=== PATIENT | male | born 1950 | race Caucasian/White ===

== ENCOUNTER 2017-10-19 14:32 | Inpatient (IN) | payer SELFPAY ==
--- NOTE | 2017-10-19 16:45 | EDM.PDOC ---
ED HPI GENERAL MEDICAL PROBLEM - General Chief Complaint: Cardiovascular Problem Stated Complaint: SWELLING Time Seen by Provider: 10/19/17 16:45 Source of Information: Reports: Patient History Limitations: Reports: No Limitations - History of Present Illness INITIAL COMMENTS - FREE TEXT/NARRATIVE: 66-year-old male presents to the ED with a reported 15 pound weight gain over the last 2-3 weeks. He feels short of breath on minimal exertion. He comments that he is experiencing orthopnea and paroxysmal nocturnal dyspnea. He's been sleeping in the easy chair. Appreciated that his legs are swollen some of his penis and scrotum are swollen and he has a pressure in his lower right quadrant of his abdomen. Eyes cough or sputum production. No fever or chills. Reports she 's been hypertensive for many years but off of antihypertensive medications since Dr. Nile mejia down in [facility]. They wouldn't fill his medications anymore. He's not sure what medications he is to take but he knows that one of them was a beta yovana to help his heart rate. Denies any chest pain. No history of myocardial infarction. No true history of congestive failure. Onset: Gradual Onset Date: 09/29/17 (15 pound weight gain with orthopnea and PND for the last 3 weeks) Duration: Week(s): Location: Reports: Generalized (Generalized fatigue weakness and shortness of breath on minimal exertion.) Quality: Reports: Other (Shortness of breath with orthopnea and PND for about 3 weeks. Reported 15 pound weight gain over the last 3 weeks) Severity: Moderate Improves with: Reports: None Worsens with: Reports: Other (Lying down), Movement Context: Denies: Activity, Exercise, Lifting, Sick Contact, Trauma, Other Associated Symptoms: Reports: Loss of Appetite, Malaise (Feels early satiety.), Shortness of Breath. Denies: No Other Symptoms, Confusion, Chest Pain, Cough, cough w sputum, Diaphoresis, Fever/Chills, Headaches, Nausea/Vomiting, Rash, Seizure (On exertion), Syncope, Weakness Treatments [employer]: Reports: Other (see below) (Just got back on medicines yesterday metoprolol 25 mg bid. Also apparently started likely on lisinopril/ hydrochlorothiazide dosage unknown yesterday.) - Related Data Allergies Allergy/AdvReac Type Severity Reaction Status Date / Time mold Allergy Rash Verified 10/19/17 16:58 Home Meds: Home Meds Amlidipno 2.5 mg PO DAILY 10/19/17 [History] Aspirin 81 mg PO DAILY 10/19/17 [History] Fish Oil/Peridot-3 Fatty Acids [Fish Oil 1,000 MG] 1,000 mg PO DAILY 10/19/17 [ History] Healthy Blood Pressure Formula 1 tab PO DAILY 10/19/17 [History] Metoprolol Tartrate 25 mg PO BID 10/19/17 [History] Organic Juice Cleanse 1 scoop PO DAILY 10/19/17 [History] Total Cardiocover 1 tab PO DAILY 10/19/17 [History] Ubiquinol 200 mg PO DAILY 10/19/17 [History] Past Medical History Cardiovascular History: Reports: High Cholesterol, Hypertension Musculoskeletal History: Reports: Osteoarthritis (Knees and hips.) Social & Family History - Living Situation & Occupation Living situation: Reports: Single Occupation: Employed ED ROS GENERAL - Review of Systems Review Of Systems: See Below Constitutional: Reports: Malaise, Weakness, Fatigue, Weight Gain (15 pound weight gain over the last 3 weeks.). Denies: Fever, Weight Loss HEENT: Reports: Glasses (Just for reading.) Respiratory: Reports: Shortness of Breath, Other (On minimal exertion and PND last 3 weeks). Denies: Cough, Sputum, Hemoptysis Cardiovascular: Reports: Blood Pressure Problem (Chronic hyperplastic problem for about 25 years. Off of medication for the last year started again yesterday. ), Dyspnea on Exertion, Edema. Denies: Claudication (Has appreciated swelling of his legs the last several weeks.), Lightheadedness, Orthopnea Endocrine: Reports: Fatigue GI/Abdominal: Reports: Abdominal Pain (Has some right lower abdominal discomfort at times. Feels swelling in his lower abdomen.) : Reports: Other (Swelling of his penis and scrotum appreciated intermittently.) Musculoskeletal: Reports: Back Pain (Intermittently.), Joint Pain (Knees hips and neck recently.) Skin: Reports: No Symptoms Neurological: Denies: Confusion, Dizziness, Headache, Numbness, Paresthesia, Pre -Existing Deficit, Seizure, Syncope, Tingling, Tremors, Trouble Speaking, Difficulty Walking, Weakness Psychiatric: Reports: No Symptoms Hematologic/Lymphatic: Reports: No Symptoms Immunologic: Reports: No Symptoms ED EXAM, GENERAL - Physical Exam Exam: See Below Exam Limited By: No Limitations General Appearance: Alert, WD/WN, No Apparent Distress Eye Exam: Bilateral Eye: Normal Inspection Throat/Mouth: Normal Inspection, Normal Lips, Normal Teeth, Normal Gums, Normal Oropharynx Head: Atraumatic, Normocephalic Neck: Normal Inspection, Supple, Non-Tender, Full Range of Motion. No: Lymphadenopathy (L), Lymphadenopathy (R) Respiratory/Chest: No Respiratory Distress, Rales (Right lung base. Left is clear.). No: Lungs Clear, Normal Breath Sounds Cardiovascular: JVD (Jugular venous pulsations up to the angle of his mandible bilaterally.), Irregularly Irregular (Heart rate was 140s per minute likely underlying atrial fibrillation he was not on the monitor at the time of my assessment.). No: Systolic Murmur, Gallop/S3 Peripheral Pulses: 1+: Posterior Tibial (L), Posterior Tibial (R), Dorsalis Pedis (L), Dorsalis Pedis (R) GI/Abdominal: Normal Bowel Sounds, Soft, Non-Tender, No Organomegaly, No Abnormal Bruit, No Mass, Pelvis Stable (Male) Exam: No Hernia Back Exam: Normal Inspection, Full Range of Motion. No: CVA Tenderness (L), CVA Tenderness (R) Extremities: Pedal Edema (2+ pitting edema both lower extremities. This is up to the tibial tuberosities bilaterally) Neurological: Alert, Oriented, CN II-XII Intact, Normal Cognition Psychiatric: Normal Affect, Normal Mood Skin Exam: Warm, Dry, Intact, Normal Color, No Rash EKG INTERPRETATION EKG Date: 10/19/17 Time: 17:00 Rhythm: Other (The computer reading is sinus tachycardia I disagree i.e. I think the underlying rhythm is atrial fib or flutter. However the rhythm is very regular. I will slow him down with medication and repeat ECG.) Rate (Beats/Min): 133 [place]: Normal P-Wave: Variable QRS: Other (Left bundle branch block pattern. Significant left ventricular hypertrophy with strain pattern.) ST-T: Other (There is a diffuse early repolarization pattern scaling the ST segment upwards. There is no true evidence of acute myocardial infarction.) QT: Prolonged (Minimally prolonged.) EKG Interpretation Comments: Abnormal ECG. Course - Vital Signs Last Recorded V/S: Last Vital Signs Temp 36.6 C 10/19/17 14:57 Pulse 132 H 10/19/17 14:57 Resp 16 10/19/17 14:57 BP 165/100 H 10/19/17 14:57 Pulse Ox 100 10/19/17 14:57 - Orders/Labs/Meds Orders: Active Orders 24 hr Category Date Time Status EKG Documentation Completion [RC] STAT Care 10/19/17 16:53 Active EKG Documentation Completion [RC] STAT Care 10/19/17 17:43 Active Peripheral IV Care [RC] . DIRECTED Care 10/19/17 16:58 Active Chest 1V Frontal [CR] Stat Exams 10/19/17 16:53 Taken Diltiazem 125 mg Med 10/19/17 18:00 Active Sodium Chloride 0.9% [Normal Saline] 100 ml IV ASDIRECTED Sodium Chloride 0.9% [Saline Flush] Med 10/19/17 16:58 Active 10 ml FLUSH ASDIRECTED PRN Peripheral IV Insertion Adult [OM.PC] Stat Oth 10/19/17 16:58 Ordered Medication Orders Diltiazem HCl 125 mg/ Sodium (Chloride) 125 mls @ 10 mls/hr IV ASDIRECTED PERRI Last Admin: 10/19/17 18:57 Dose: 10 mg/hr, 10 mls/hr Sodium Chloride (Saline Flush) 10 ml FLUSH ASDIRECTED PRN PRN Reason: Keep Vein Open Last Admin: 10/19/17 17:33 Dose: 10 ml Labs: Laboratory Tests 10/19/17 10/19/17 10/19/17 Range/Units 18:35 18:35 18:35 WBC 9.30 H (4.23-9.07) K/mm3 RBC 5.97 (4.63-6.08) M/mm3 Hgb 15.5 (13.7-17.5) gm/L Hct 48.0 (40.1-51.0) % MCV 80.4 (79.0-92.2) fl MCH 26.0 (25.7-32.2) pg MCHC 32.3 (32.2-35.5) g/dl RDW Std Deviation 53.7 H (35.1-43.9) fL Plt Count 264 (163-337) K/mm3 MPV 9.5 (9.4-12.3) fl Neutrophils % (Manual) 79 H (40-60) % Band Neutrophils % 0 (0-10) % Lymphocytes % (Manual) 17 L (20-40) % Atypical Lymphs % 0 % Monocytes % (Manual) 2 (2-10) % Eosinophils % (Manual) 1 (0.8-7.0) % Basophils % (Manual) 1 (0.2-1.2) Platelet Estimate Adequate Plt Morphology Comment Normal RBC Morph Comment Normal PT 13.1 H (9.5-12.1) SECONDS INR 1.21 Sodium 139 (136-145) mEq/L Potassium 3.6 (3.5-5.1) mEq/L Chloride 104 (98-107) mEq/L Carbon Dioxide 20 L (21-32) mEq/L Anion Gap 18.6 H (5-15) BUN 74 H (7-18) mg/dL Creatinine 2.5 H (0.7-1.3) mg/dL Est Cr Clr Drug Dosing 29.61 mL/min Estimated GFR (MDRD) 26 (>60) mL/min BUN/Creatinine Ratio 29.6 H (14-18) Glucose 100 (80-115) mg/dL Calcium 8.8 (8.5-10.1) mg/dL Magnesium 2.6 H (1.8-2.4) mg/dl Total Bilirubin 1.7 H (0.2-1.0) mg/dL AST 53 H (15-37) U/L ALT 75 H (16-63) U/L Alkaline Phosphatase 98 (46-116) U/L CK-MB (CK-2) 7.2 H (0-3.6) ng/ml Troponin I 0.068 H* (0.00-0.056) ng/mL C-Reactive Protein 2.9 H* (<1.0) mg/dL NT-Pro-B Natriuret Pep (0-125) pg/mL Total Protein 6.8 (6.4-8.2) g/dl Albumin 3.5 (3.4-5.0) g/dl Globulin 3.3 gm/dL Albumin/Globulin Ratio 1.1 (1-2) TSH 3rd Generation (0.358-3.74) uIU/mL 10/19/17 10/19/17 Range/Units 18:35 18:35 WBC (4.23-9.07) K/mm3 RBC (4.63-6.08) M/mm3 Hgb (13.7-17.5) gm/L Hct (40.1-51.0) % MCV (79.0-92.2) fl MCH (25.7-32.2) pg MCHC (32.2-35.5) g/dl RDW Std Deviation (35.1-43.9) fL Plt Count (163-337) K/mm3 MPV (9.4-12.3) fl Neutrophils % (Manual) (40-60) % Band Neutrophils % (0-10) % Lymphocytes % (Manual) (20-40) % Atypical Lymphs % % Monocytes % (Manual) (2-10) % Eosinophils % (Manual) (0.8-7.0) % Basophils % (Manual) (0.2-1.2) Platelet Estimate Plt Morphology Comment RBC Morph Comment PT (9.5-12.1) SECONDS INR Sodium (136-145) mEq/L Potassium (3.5-5.1) mEq/L Chloride (98-107) mEq/L Carbon Dioxide (21-32) mEq/L Anion Gap (5-15) BUN (7-18) mg/dL Creatinine (0.7-1.3) mg/dL Est Cr Clr Drug Dosing mL/min Estimated GFR (MDRD) (>60) mL/min BUN/Creatinine Ratio (14-18) Glucose (80-115) mg/dL Calcium (8.5-10.1) mg/dL Magnesium (1.8-2.4) mg/dl Total Bilirubin (0.2-1.0) mg/dL AST (15-37) U/L ALT (16-63) U/L Alkaline Phosphatase (46-116) U/L CK-MB (CK-2) (0-3.6) ng/ml Troponin I (0.00-0.056) ng/mL C-Reactive Protein (<1.0) mg/dL NT-Pro-B Natriuret Pep 9267 H (0-125) pg/mL Total Protein (6.4-8.2) g/dl Albumin (3.4-5.0) g/dl Globulin gm/dL Albumin/Globulin Ratio (1-2) TSH 3rd Generation 1.573 (0.358-3.74) uIU/mL Meds: Medications Generic Name Dose Route Start Last Admin Trade Name Freq PRN Reason Stop Dose Admin Diltiazem HCl 125 mg/ Sodium 125 mls @ 10 mls/hr 10/19/17 18:00 10/19/17 18: 57 Chloride IV 10 mg/hr ASDIRECTED PERRI 10 mls/hr Administration 10 MG/HR Sodium Chloride 10 ml 10/19/17 16:58 10/19/17 17:33 Saline Flush FLUSH 10 ml ASDIRECTED PRN Administration Keep Vein Open Discontinued Medications Generic Name Dose Route Start Last Admin Trade Name Freq PRN Reason Stop Dose Admin Diltiazem HCl 10 mg 10/19/17 17:08 10/19/17 17:28 Diltiazem IVPUSH 10/19/17 17:09 10 mg ONETIME ONE Administration Diltiazem HCl 10 mg 10/19/17 18:25 10/19/17 18:31 Diltiazem IVPUSH 10/19/17 18:26 10 mg ONETIME ONE Administration Furosemide 40 mg 10/19/17 16:58 10/19/17 17:27 Lasix IVPUSH 10/19/17 16:59 40 mg NOW ONE Administration Hydralazine HCl 10 mg 10/19/17 18:34 10/19/17 18:55 Apresoline IVPUSH 10/19/17 18:35 10 mg ONETIME ONE Administration - Radiology Interpretation Free Text/Narrative:: 66-year-old male presents to the ED with a reported 15 pound weight gain over the last 3 weeks. Associated orthopnea and PND. He is not aware of any palpitations but at rest his heart rate was 133 with a regular wide-complex tachycardia on ECG. Since sinus in origin although I'm not convinced that. I suspect it may be atrial flutter with a 2-1 conduction block. He has increased dependent edema in his lower extremities. Reports he is chronically hypertensive but after his doctor retired a year ago they would refill his blood pressure medications and never really followed up with anybody. Lactic right [facility] 2 days ago and was prescribed metoprolol 25 mg twice a day and apparently lisinopril/hydrochlorothiazide dosage unknown daily. He came in because he is having increasing orthopnea and PND. He is unable to lie down to sleep. Dyspnea on minimal exertion. He has no known history of congestive heart failure. Plan 1 view chest x-ray to be done. Saline lock will be started. He'll be given Lasix 40 mg IV and going to give him a dose of Cardizem 10 mg IV bolus in an effort to slow his heart rate down and also to improve his blood pressure which is 165/100. Labs including BNP serum magnesium and a TSH will be ordered. - Re-Assessments/Exams Free Text/Narrative Re-Assessment/Exam: 10/19/17 18:02 heart rate was slowed down with Cardizem 10 mg IV bolus. Did not produce my conviction that there is atrial flutter with a 2-1 conduction block. It is down to [address] now [address] him on a Cardizem drip at 10 mg per hour. Is to x-ray revealed moderate cardiomegaly but clear lung jacinto. No pleural effusions or pneumothorax. 10/19/17 18:26 Heart rate is back up to 133/min. Will therefore give a repeat dose of Cardizem as I'm 10 mg IV bolus. 10/19/17 19:25 Labs are back. Reveals a white count of 9.30 with 79% neutrophils with no bands reported. Hemoglobin is 15.5 with hematocrit of 48.0. Platelet count is normal at 264,000. PT is 13.1 with an INR of 1.21. Sodium is 139 with potassium of 3.6. Chloride is 104 with a bicarbonate 20. Anion gap is elevated 18.6. BUN is 74. Creatinine is elevated at 2.5 indicating significant renal insufficiency. His GFR is estimated at 26 which is stage IV renal insufficiency. Glucose is 100. Calcium is 8.8. Magnesium is normal at 2.6 actually a bit high. Total bilirubin is elevated at 1.7. AST is 53 with an ALT of 75. Alk phosphatase is normal at 98. CK-MB fraction is elevated at 7.2 troponin I is elevated at 0.068. C-reactive protein is 2.9. BNP is 9267. TSH is 1.573 normal. 10/19/17 19:[address] Dumont about the patient's findings. He has accepted care and the patient will be admitted to the intensive care unit on a Cardizem drip for rate control. He has uncontrolled hypertension( malignant hypertension) which is the major issue causing his congestive failure with development of atrial flutter with a 2-1 conduction delay at this time. This is contributing to renal insufficiency and congestive heart failure. Departure - Departure Time of Disposition: 19:37 Disposition: Admitted As Inpatient 65 Condition: Serious Clinical Impression: Atrial flutter with rapid ventricular response, Chronic renal insufficiency, stage IV (severe), Malignant hypertension Congestive heart failure Qualifiers: Heart failure type: unspecified Heart failure chronicity: acute Qualified Code( s): I50.9 - Heart failure, unspecified Referrals: PCP,None [Primary Care Provider] - Forms: ED Department Discharge - My Orders Last 24 Hours: My Active Orders 10/19/17 16:53 EKG Documentation Completion [RC] STAT Chest 1V Frontal [CR] Stat 10/19/17 16:58 Peripheral IV Care [RC] . DIRECTED Sodium Chloride 0.9% [Saline Flush] 10 ml FLUSH ASDIRECTED PRN Peripheral IV Insertion Adult [OM.PC] Stat 10/19/17 17:43 EKG Documentation Completion [RC] STAT 10/19/17 18:00 Diltiazem 125 mg Sodium Chloride 0.9% [Normal Saline] 100 ml IV ASDIRECTED - Assessment/Plan Last 24 Hours: My Active Orders 10/19/17 16:53 EKG Documentation Completion [RC] STAT Chest 1V Frontal [CR] Stat 10/19/17 16:58 Peripheral IV Care [RC] . DIRECTED Sodium Chloride 0.9% [Saline Flush] 10 ml FLUSH ASDIRECTED PRN Peripheral IV Insertion Adult [OM.PC] Stat 10/19/17 17:43 EKG Documentation Completion [RC] STAT 10/19/17 18:00 Diltiazem 125 mg Sodium Chloride 0.9% [Normal Saline] 100 ml IV ASDIRECTED
[2017-10-19] MEDS ORDERED: Furosemide 40 MG/4 ML VIAL IVPUSH ONE (16:58)
[2017-10-19] MEDS ORDERED: Sodium Chloride 0.9% 10 ML Syringe FLUSH PRN (16:58)
[2017-10-19] MEDS ORDERED: Diltiazem 25 MG/5 ML SDV IVPUSH ONE ×2 (17:08→18:25)
[2017-10-19] MEDS ORDERED: Diltiazem 125 MG in Sodium Chloride 0.9% 100 ML IV SCH ×2 (18:00→23:15)
[2017-10-19] MEDS ORDERED: hydrALAZINE 20 MG/ML SDV IVPUSH ONE (18:34)
--- NOTE | 2017-10-19 20:51 | PCM.HP ---
H&P History of Present Illness - General Date of Service: 10/19/17 Admit Problem/Dx: Admission Diagnosis/Problem Admission Diagnosis/Problem Atrial fibrillation Source of Information: Patient, Family, Provider, RN Notes Reviewed History Limitations: Reports: No Limitations - History of Present Illness Initial Comments - Free Text/Narative: This is a 66 yo white male with past medical hx/o HTN who comes in with complaints of increased weight gain of about 15lbs or more over the past 3 weeks associated with dyspnea on exertion, fatigue, generalized weakness and swelling on bilateral lower extremity as well as on scrotum. He has been sleeping in am EZ chair due to PND and Orthopnea. He reports no hx/o heart disease or heart failure in the past. However he carries a hx/o long standing hypertension but has been non-compliant per family. In the past, he hops from one doctor to another but currently he just started seeing a provider. He is just got back on combo ACEI/HCTZ and Metoprolol 35 mg po BID for medical management of his HTN. His initial work up in ED shows, a CBC remarkable for WBC of 9.30, RDW of 53.7, Neutrophils of 79%, and Lymphocytes of 17%. His Coagulation study is remarkable for PT of 13.1. His chemistry is significant for CO2 of 20, AG of 18.6, BUN of 74, Cr of 2.5, Mg of 2.6, Total Bilirubin of 1.7, AST of 53, ALT of 75, CKMB of 7.2, Troponin of 2.9, and ProBNP of 9267. His UA is negative for UTI. His CXR shows moderately enlarged heart w/o obvious congestion or effusions. Upon presentation to ED he was found with at HR of 133 with a WCT on EKG. But a closer look of it, it revealed he had atrial flutter with 2:1 conduction block. Patient received 40 mg IV lasix and Cardizem 10 mg IV in ED before he was put on cardizem drip and moved to unit. Patient is being admitted for medical management of atrial flutter with RVR, heart failure with unknown ef, acute vs ckd and malignant hypertension. He is full code. - Related Data Allergies/Adverse Reactions: Allergies Allergy/AdvReac Type Severity Reaction Status Date / Time mold Allergy Rash Verified 10/19/17 16:58 Home Medications: Home Meds Metoprolol Tartrate 25 mg PO BID 10/19/17 [History] Past Medical History Cardiovascular History: Reports: High Cholesterol, Hypertension Respiratory History: Reports: Asthma Musculoskeletal History: Reports: Osteoarthritis Neurological History: Reports: Migraines Psychiatric History: Reports: Anxiety Oncologic (Cancer) History: Reports: Malignant Melanoma Dermatologic History: Reports: Melanoma - Infectious Disease History Infectious Disease History: Reports: Chicken Pox, Mumps - Past Surgical History HEENT Surgical History: Reports: Naso-Sinus Surgery Other HEENT Surgeries/Procedures: 1976 Social & Family History - Family History Family Medical History: Noncontributory Neurological: Reports: None Psychiatric: Reports: None - Tobacco Use Smoking Status *Q: Never Smoker Second Hand Smoke Exposure: No - Caffeine Use Caffeine Use: Reports: None Other Caffeine Use: occasional - Recreational Drug Use Recreational Drug Use: No - Living Situation & Occupation Living situation: Reports: Single Occupation: Employed H&P Review of Systems - Review of Systems: Review Of Systems: ROS reveals no pertinent complaints other than HPI. Exam - Exam Exam: See Below - Vital Signs Vital Signs: Last Vital Signs Temp 36.6 C 10/19/17 14:57 Pulse 112 H 10/19/17 19:47 Resp 16 10/19/17 14:57 BP 165/100 H 10/19/17 14:57 Pulse Ox 100 10/19/17 14:57 Weight: 53.07 kg - Exam General: Alert, Oriented, Cooperative, Sedated. No: Mild Distress HEENT: Conjunctiva Clear, EOMI, Hearing Intact, Mucosa Moist & [place], Nares Patent, Normal Nasal Septum, Posterior Pharynx Clear, Pupils Equal, Pupils Reactive Neck: Supple, Trachea Midline, +2 Carotid Pulse wo Bruit Lungs: Clear to Auscultation, Normal Respiratory Effort Cardiovascular: Irregular Rhythm, Other (Irregular Rate) GI/Abdominal Exam: Normal Bowel Sounds, Soft, Non-Tender, No Organomegaly, No Distention, No Abnormal Bruit, No Mass (Male) Exam: Deferred Rectal (Males) Exam: Deferred Back Exam: Normal Inspection, Decreased Range of Motion Extremities: Normal Inspection, Normal Range of Motion, Non-Tender, Pedal Edema Peripheral Pulses: 2+: Posterior Tibial (L), Posterior Tibial (R), Dorsalis Pedis (L), Dorsalis Pedis (R) Skin: Warm, Dry, Intact Neuro Extensive - Mental Status: Oriented x3, Normal Cognition, Memory Intact Neuro Extensive - Motor, Sensory, Reflexes: CN II-XII Intact, Normal Gait Psychiatric: Alert, Normal Affect, Normal Mood - Patient Data Lab Results Last 24 hrs: Laboratory Results - last 24 hr 10/19/17 10/19/17 10/19/17 Range/Units 18:35 18:35 18:35 WBC 9.30 H (4.23-9.07) K/mm3 RBC 5.97 (4.63-6.08) M/mm3 Hgb 15.5 (13.7-17.5) gm/L Hct 48.0 (40.1-51.0) % MCV 80.4 (79.0-92.2) fl MCH 26.0 (25.7-32.2) pg MCHC 32.3 (32.2-35.5) g/dl RDW Std Deviation 53.7 H (35.1-43.9) fL Plt Count 264 (163-337) K/mm3 MPV 9.5 (9.4-12.3) fl Neutrophils % (Manual) 79 H (40-60) % Band Neutrophils % 0 (0-10) % Lymphocytes % (Manual) 17 L (20-40) % Atypical Lymphs % 0 % Monocytes % (Manual) 2 (2-10) % Eosinophils % (Manual) 1 (0.8-7.0) % Basophils % (Manual) 1 (0.2-1.2) Platelet Estimate Adequate Plt Morphology Comment Normal RBC Morph Comment Normal PT 13.1 H (9.5-12.1) SECONDS INR 1.21 Sodium 139 (136-145) mEq/L Potassium 3.6 (3.5-5.1) mEq/L Chloride 104 (98-107) mEq/L Carbon Dioxide 20 L (21-32) mEq/L Anion Gap 18.6 H (5-15) BUN 74 H (7-18) mg/dL Creatinine 2.5 H (0.7-1.3) mg/dL Est Cr Clr Drug Dosing 29.61 mL/min Estimated GFR (MDRD) 26 (>60) mL/min BUN/Creatinine Ratio 29.6 H (14-18) Glucose 100 (80-115) mg/dL Calcium 8.8 (8.5-10.1) mg/dL Magnesium 2.6 H (1.8-2.4) mg/dl Total Bilirubin 1.7 H (0.2-1.0) mg/dL AST 53 H (15-37) U/L ALT 75 H (16-63) U/L Alkaline Phosphatase 98 (46-116) U/L CK-MB (CK-2) 7.2 H (0-3.6) ng/ml Troponin I 0.068 H* (0.00-0.056) ng/mL C-Reactive Protein 2.9 H* (<1.0) mg/dL NT-Pro-B Natriuret Pep (0-125) pg/mL Total Protein 6.8 (6.4-8.2) g/dl Albumin 3.5 (3.4-5.0) g/dl Globulin 3.3 gm/dL Albumin/Globulin Ratio 1.1 (1-2) TSH 3rd Generation (0.358-3.74) uIU/mL 10/19/17 10/19/17 Range/Units 18:35 18:35 WBC (4.23-9.07) K/mm3 RBC (4.63-6.08) M/mm3 Hgb (13.7-17.5) gm/L Hct (40.1-51.0) % MCV (79.0-92.2) fl MCH (25.7-32.2) pg MCHC (32.2-35.5) g/dl RDW Std Deviation (35.1-43.9) fL Plt Count (163-337) K/mm3 MPV (9.4-12.3) fl Neutrophils % (Manual) (40-60) % Band Neutrophils % (0-10) % Lymphocytes % (Manual) (20-40) % Atypical Lymphs % % Monocytes % (Manual) (2-10) % Eosinophils % (Manual) (0.8-7.0) % Basophils % (Manual) (0.2-1.2) Platelet Estimate Plt Morphology Comment RBC Morph Comment PT (9.5-12.1) SECONDS INR Sodium (136-145) mEq/L Potassium (3.5-5.1) mEq/L Chloride (98-107) mEq/L Carbon Dioxide (21-32) mEq/L Anion Gap (5-15) BUN (7-18) mg/dL Creatinine (0.7-1.3) mg/dL Est Cr Clr Drug Dosing mL/min Estimated GFR (MDRD) (>60) mL/min BUN/Creatinine Ratio (14-18) Glucose (80-115) mg/dL Calcium (8.5-10.1) mg/dL Magnesium (1.8-2.4) mg/dl Total Bilirubin (0.2-1.0) mg/dL AST (15-37) U/L ALT (16-63) U/L Alkaline Phosphatase (46-116) U/L CK-MB (CK-2) (0-3.6) ng/ml Troponin I (0.00-0.056) ng/mL C-Reactive Protein (<1.0) mg/dL NT-Pro-B Natriuret Pep 9267 H (0-125) pg/mL Total Protein (6.4-8.2) g/dl Albumin (3.4-5.0) g/dl Globulin gm/dL Albumin/Globulin Ratio (1-2) TSH 3rd Generation 1.573 (0.358-3.74) uIU/mL Result Diagrams: 10/20/17 05:50 10/20/17 05:50 EKG INTERPRETATION EKG Date: 10/19/17 Time: 05:01 Rhythm: Other (Sinus Tachycardia) Rate (Beats/Min): 133 QRS: LBBB EKG Interpretation Comments: LV[facility] Problem List Initiated/Reviewed/Updated: Yes Orders Last 24hrs: Active Orders 24 hr Category Date Time Status Patient Status [ADT] Routine ADT 10/19/17 19:32 Active EKG Documentation Completion [RC] STAT Care 10/19/17 16:53 Active EKG Documentation Completion [RC] STAT Care 10/19/17 17:43 Active Peripheral IV Care [RC] . DIRECTED Care 10/19/17 16:58 Active Chest 1V Frontal [CR] Stat Exams 10/19/17 16:53 Taken Diltiazem 125 mg Med 10/19/17 18:00 Active Sodium Chloride 0.9% [Normal Saline] 100 ml IV ASDIRECTED Sodium Chloride 0.9% [Saline Flush] Med 10/19/17 16:58 Active 10 ml FLUSH ASDIRECTED PRN Peripheral IV Insertion Adult [OM.PC] Stat Oth 10/19/17 16:58 Ordered Medication Orders Diltiazem HCl 125 mg/ Sodium (Chloride) 125 mls @ 10 mls/hr IV ASDIRECTED PERRI Last Admin: 10/19/17 18:57 Dose: 10 mg/hr, 10 mls/hr Sodium Chloride (Saline Flush) 10 ml FLUSH ASDIRECTED PRN PRN Reason: Keep Vein Open Last Admin: 10/19/17 17:33 Dose: 10 ml Assessment/Plan Comment:: Assessment/Plan: Acute: Atrial Flutter with RVR - 2:1 conduction - New Onset - Suspect 2/2 acute congestive heart failure - Risk Factors: HF, HTN, CKD and Medical Non-Compliance - He drinks coffee but not much; No monster or 5 hour drinks - TSH and FT4 level - Currently on Cardizem drip - CHA2D2 -VASc Score is at least 3: Stroke risk was 3.2% per year in >90,000 patients (the [place] Atrial Fibrillation Cohort Study) and 4.6% risk of stroke/ TIA/systemic embolism - Offered Warfarin vs NOACs; patient selected eliquis Heart Failure with Unknown EF - New vs Old - ProBNP 9267 - Has clinical signs of volume overload - 2D echo in AM - Heart Failure Protocol: diuretics, Is/Os, salt and fluid restrictions Slightly Elevated Troponin Level - Troponin 0.068; CKMB is 7.2 - Likely from CKD and Heart Strain from Atrial Flutter Acute vs CKD Stage 3 - We have no previous records - BUN 74 and Cr 2.5; GFR is 26 - Monitor renal function Malignant HTN - Takes combo ACEI/HCTZ - Non-compliance - Documented BP of 154/129 and 165/100 mmHg Plan: Admit to ICU Cardizem drip titrate to keep HR < 100 Hold Home Meds Metoprolol 50 mg po BID Routine AM Labs Will obtain chart from his old PCP ProBNP level in AM 2D echo in AM SW/CM for d/c planning Code status: 1 Spoke to family at bedside. Informed them about his diagnoses, treatment plan, clinical status and discharge care plan.
[2017-10-19] MEDS ORDERED: Metoprolol Tartrate 50 MG Tab PO ONE (21:04)
[2017-10-19] MEDS ORDERED: Apixaban 5 MG Tab PO ONE (21:06)
[2017-10-19] MEDS ORDERED: hydrALAZINE 20 MG/ML SDV IVPUSH PRN (21:07)
[2017-10-19] MEDS ORDERED: LORazepam 2 MG/ML SDV IVPUSH PRN (21:07)
[2017-10-19] MEDS ORDERED: Polyethylene Glycol 3350 Powder 17 GM Packet PO PRN (21:08)
[2017-10-19] MEDS ORDERED: Promethazine 12.5 MG in Sodium Chloride 0.9% 50 ML IV PRN (21:08)
[2017-10-19] MEDS ORDERED: Bisacodyl 5 MG Tab PO PRN (21:08)
[2017-10-19] MEDS ORDERED: Docusate Sodium 100 MG Cap PO PRN (21:08)
[2017-10-19] MEDS ORDERED: Albuterol/Ipratropium 3.0-0.5 MG/3 ML Neb Soln NEB PRN (21:08)
[2017-10-19] MEDS ORDERED: Acetaminophen 325 MG Tab PO PRN (21:08)
[2017-10-19] MEDS ORDERED: HYDROmorphone 0.5 MG/0.5 ML SYRINGE IVPUSH PRN (21:08)
[2017-10-19] MEDS ORDERED: Acetaminophen/HYDROcodone 325-5 MG Tab PO PRN (21:08)
[2017-10-20] MEDS: LORazepam 2 MG/ML SDV IV PRN (04:09)
--- NOTE | 2017-10-20 07:32 | CR ---
Chest: Portable view of the chest was obtained. Comparison: No prior chest x-ray. Heart is enlarged. Slight upper lobe pulmonary vascular redistribution is seen. Lungs otherwise are clear. Slight tortuosity of the thoracic aorta is seen. Bony structures are grossly intact. Impression: 1. Cardiomegaly with mild upper lobe pulmonary vascular redistribution. Diagnostic code #3
[2017-10-20] MEDS: Metoprolol Tartrate 50 MG Tab PO SCH ×2 (08:21→22:41)
[2017-10-20] MEDS: Potassium Chloride 20 MEQ Tab.ER PO SCH ×2 (08:23→12:45)
[2017-10-20] MEDS: Apixaban 5 MG Tab PO SCH ×2 (08:23→21:38)
[2017-10-20] MEDS ORDERED: Diltiazem 180 MG Cap.CD PO SCH (09:00)
--- NOTE | 2017-10-20 12:26 | PCM.PN ---
<Michelle Mccollum - Last Filed: 10/20/17 13:50> - General Info Date of Service: 10/20/17 Admission Dx/Problem (Free Text): Admission Diagnosis/Problem Admission Diagnosis/Problem Atrial fibrillation Subjective Update: In to see Gm. He is laying comfortably in bed. He reports dyspnea has improved. He also reports the swelling in his legs appears better to him. He also states that his abdominal fullness has lessened. Patient shares that the last time he had a PCP was "probably 5 or 6 years ago". Denies any N/V, constipation, diarrhea, or issues. Nursing has no concerns. Functional Status: Reports: Pain Controlled, Tolerating Diet, Ambulating, Urinating - Review of Systems General: Reports: No Symptoms. Denies: Fever, Weakness, Chills HEENT: Reports: No Symptoms Pulmonary: Reports: No Symptoms. Denies: Shortness of Breath, Cough Cardiovascular: Reports: Edema. Denies: Chest Pain, Palpitations Gastrointestinal: Reports: No Symptoms. Denies: Abdominal Pain, Constipation, Diarrhea, Nausea, Vomiting Genitourinary: Reports: No Symptoms. Denies: Dysuria, Frequency, Burning Musculoskeletal: Reports: No Symptoms Skin: Reports: No Symptoms Neurological: Reports: No Symptoms. Denies: Confusion, Dizziness, Headache, Numbness, Paresthesia Psychiatric: Reports: No Symptoms. Denies: Confusion - Patient Data Vitals - Most Recent: Last Vital Signs Temp 97.3 F 10/20/17 11:55 Pulse 66 10/20/17 10:13 Resp 16 10/20/17 11:55 BP 114/85 10/20/17 11:55 Pulse Ox 98 10/20/17 11:55 Weight - Most Recent: 104.326 kg I&O - Last 24 Hours: Intake & Output 10/19/17 10/20/17 10/20/17 22:59 06:59 14:59 Intake Total 240 626 Output Total 575 350 200 Balance -575 -110 426 Lab Results Last 24 Hours: Laboratory Results - last 24 hr 10/19/17 10/19/17 10/19/17 Range/Units 18:35 18:35 18:35 WBC 9.30 H (4.23-9.07) K/mm3 RBC 5.97 (4.63-6.08) M/mm3 Hgb 15.5 (13.7-17.5) gm/L Hct 48.0 (40.1-51.0) % MCV 80.4 (79.0-92.2) fl MCH 26.0 (25.7-32.2) pg MCHC 32.3 (32.2-35.5) g/dl RDW Std Deviation 53.7 H (35.1-43.9) fL Plt Count 264 (163-337) K/mm3 MPV 9.5 (9.4-12.3) fl Neut % (Auto) (34.0-67.9) % Lymph % (Auto) (21.8-53.1) % [place] % (Auto) (5.3-12.2) % Eos % (Auto) (0.8-7.0) Baso % (Auto) (0.1-1.2) % Neut # (Auto) (1.78-5.38) K/mm3 Lymph # (Auto) (1.32-3.57) K/mm3 [place] # (Auto) (0.30-0.82) K/mm3 Eos # (Auto) (0.04-0.54) K/mm3 Baso # (Auto) (0.01-0.08) K/mm3 Neutrophils % (Manual) 79 H (40-60) % Band Neutrophils % 0 (0-10) % Lymphocytes % (Manual) 17 L (20-40) % Atypical Lymphs % 0 % Monocytes % (Manual) 2 (2-10) % Eosinophils % (Manual) 1 (0.8-7.0) % Basophils % (Manual) 1 (0.2-1.2) Platelet Estimate Adequate Plt Morphology Comment Normal RBC Morph Comment Normal PT 13.1 H (9.5-12.1) SECONDS INR 1.21 Sodium 139 (136-145) mEq/L Potassium 3.6 (3.5-5.1) mEq/L Chloride 104 (98-107) mEq/L Carbon Dioxide 20 L (21-32) mEq/L Anion Gap 18.6 H (5-15) BUN 74 H (7-18) mg/dL Creatinine 2.5 H (0.7-1.3) mg/dL Est Cr Clr Drug Dosing 29.61 mL/min Estimated GFR (MDRD) 26 (>60) mL/min BUN/Creatinine Ratio 29.6 H (14-18) Glucose 100 (80-115) mg/dL Calcium 8.8 (8.5-10.1) mg/dL Magnesium 2.6 H (1.8-2.4) mg/dl Total Bilirubin 1.7 H (0.2-1.0) mg/dL AST 53 H (15-37) U/L ALT 75 H (16-63) U/L Alkaline Phosphatase 98 (46-116) U/L CK-MB (CK-2) 7.2 H (0-3.6) ng/ml Troponin I 0.068 H* (0.00-0.056) ng/mL C-Reactive Protein 2.9 H* (<1.0) mg/dL NT-Pro-B Natriuret Pep (0-125) pg/mL Total Protein 6.8 (6.4-8.2) g/dl Albumin 3.5 (3.4-5.0) g/dl Globulin 3.3 gm/dL Albumin/Globulin Ratio 1.1 (1-2) Triglycerides (<150) mg/dL Cholesterol (<200) mg/dL LDL Cholesterol Direct (<100) mg/dL HDL Cholesterol (40-59) mg/dL TSH 3rd Generation (0.358-3.74) uIU/mL Urine Color (Yellow) Urine Appearance (Clear) Urine pH (5.0-8.0) Ur Specific [place] (1.005-1.030) Urine Protein (Negative) Urine Glucose (UA) (Negative) Urine Ketones (Negative) Urine Occult Blood (Negative) Urine Nitrite (Negative) Urine Bilirubin (Negative) Urine Urobilinogen (0.2-1.0) Ur Leukocyte Esterase (Negative) Urine RBC (0-5) /hpf Urine WBC (0-5) /hpf Ur Epithelial Cells (0-5) /hpf Urine Bacteria (FEW) /hpf Hyaline Casts (0-5) /lpf Waxy Casts (0-5) /lpf Urine Mucus (FEW) /hpf 10/19/17 10/19/17 10/19/17 Range/Units 18:35 18:35 21:10 WBC (4.23-9.07) K/mm3 RBC (4.63-6.08) M/mm3 Hgb (13.7-17.5) gm/L Hct (40.1-51.0) % MCV (79.0-92.2) fl MCH (25.7-32.2) pg MCHC (32.2-35.5) g/dl RDW Std Deviation (35.1-43.9) fL Plt Count (163-337) K/mm3 MPV (9.4-12.3) fl Neut % (Auto) (34.0-67.9) % Lymph % (Auto) (21.8-53.1) % [place] % (Auto) (5.3-12.2) % Eos % (Auto) (0.8-7.0) Baso % (Auto) (0.1-1.2) % Neut # (Auto) (1.78-5.38) K/mm3 Lymph # (Auto) (1.32-3.57) K/mm3 [place] # (Auto) (0.30-0.82) K/mm3 Eos # (Auto) (0.04-0.54) K/mm3 Baso # (Auto) (0.01-0.08) K/mm3 Neutrophils % (Manual) (40-60) % Band Neutrophils % (0-10) % Lymphocytes % (Manual) (20-40) % Atypical Lymphs % % Monocytes % (Manual) (2-10) % Eosinophils % (Manual) (0.8-7.0) % Basophils % (Manual) (0.2-1.2) Platelet Estimate Plt Morphology Comment RBC Morph Comment PT (9.5-12.1) SECONDS INR Sodium (136-145) mEq/L Potassium (3.5-5.1) mEq/L Chloride (98-107) mEq/L Carbon Dioxide (21-32) mEq/L Anion Gap (5-15) BUN (7-18) mg/dL Creatinine (0.7-1.3) mg/dL Est Cr Clr Drug Dosing mL/min Estimated GFR (MDRD) (>60) mL/min BUN/Creatinine Ratio (14-18) Glucose (80-115) mg/dL Calcium (8.5-10.1) mg/dL Magnesium (1.8-2.4) mg/dl Total Bilirubin (0.2-1.0) mg/dL AST (15-37) U/L ALT (16-63) U/L Alkaline Phosphatase (46-116) U/L CK-MB (CK-2) (0-3.6) ng/ml Troponin I (0.00-0.056) ng/mL C-Reactive Protein (<1.0) mg/dL NT-Pro-B Natriuret Pep 9267 H (0-125) pg/mL Total Protein (6.4-8.2) g/dl Albumin (3.4-5.0) g/dl Globulin gm/dL Albumin/Globulin Ratio (1-2) Triglycerides (<150) mg/dL Cholesterol (<200) mg/dL LDL Cholesterol Direct (<100) mg/dL HDL Cholesterol (40-59) mg/dL TSH 3rd Generation 1.573 (0.358-3.74) uIU/mL Urine Color Light yellow (Yellow) Urine Appearance Clear (Clear) Urine pH 6.0 (5.0-8.0) Ur Specific [place] 1.015 (1.005-1.030) Urine Protein Negative (Negative) Urine Glucose (UA) Negative (Negative) Urine Ketones Negative (Negative) Urine Occult Blood Negative (Negative) Urine Nitrite Negative (Negative) Urine Bilirubin Negative (Negative) Urine Urobilinogen 0.2 (0.2-1.0) Ur Leukocyte Esterase Negative (Negative) Urine RBC 0-5 (0-5) /hpf Urine WBC 0-5 (0-5) /hpf Ur Epithelial Cells 0-5 (0-5) /hpf Urine Bacteria Rare (FEW) /hpf Hyaline Casts 0-5 (0-5) /lpf Waxy Casts 0-5 (0-5) /lpf Urine Mucus Not seen (FEW) /hpf 10/20/17 10/20/17 10/20/17 Range/Units 05:50 05:50 05:50 WBC 6.90 (4.23-9.07) K/mm3 RBC 5.12 (4.63-6.08) M/mm3 Hgb 13.3 L (13.7-17.5) gm/L Hct 41.8 (40.1-51.0) % MCV 81.6 (79.0-92.2) fl MCH 26.0 (25.7-32.2) pg MCHC 31.8 L (32.2-35.5) g/dl RDW Std Deviation 54.5 H (35.1-43.9) fL Plt Count 234 (163-337) K/mm3 MPV 9.7 (9.4-12.3) fl Neut % (Auto) 73.5 H (34.0-67.9) % Lymph % (Auto) 12.9 L (21.8-53.1) % [place] % (Auto) 10.7 (5.3-12.2) % Eos % (Auto) 2.5 (0.8-7.0) Baso % (Auto) 0.3 (0.1-1.2) % Neut # (Auto) 5.07 (1.78-5.38) K/mm3 Lymph # (Auto) 0.89 L (1.32-3.57) K/mm3 [place] # (Auto) 0.74 (0.30-0.82) K/mm3 Eos # (Auto) 0.17 (0.04-0.54) K/mm3 Baso # (Auto) 0.02 (0.01-0.08) K/mm3 Neutrophils % (Manual) (40-60) % Band Neutrophils % (0-10) % Lymphocytes % (Manual) (20-40) % Atypical Lymphs % % Monocytes % (Manual) (2-10) % Eosinophils % (Manual) (0.8-7.0) % Basophils % (Manual) (0.2-1.2) Platelet Estimate Plt Morphology Comment RBC Morph Comment PT (9.5-12.1) SECONDS INR Sodium 140 (136-145) mEq/L Potassium 3.0 L (3.5-5.1) mEq/L Chloride 106 (98-107) mEq/L Carbon Dioxide 25 (21-32) mEq/L Anion Gap 12.0 (5-15) BUN 73 H (7-18) mg/dL Creatinine 2.4 H (0.7-1.3) mg/dL Est Cr Clr Drug Dosing 30.84 mL/min Estimated GFR (MDRD) 27 (>60) mL/min BUN/Creatinine Ratio 30.4 H (14-18) Glucose 160 H (80-115) mg/dL Calcium 8.1 L (8.5-10.1) mg/dL Magnesium 2.5 H (1.8-2.4) mg/dl Total Bilirubin (0.2-1.0) mg/dL AST (15-37) U/L ALT (16-63) U/L Alkaline Phosphatase (46-116) U/L CK-MB (CK-2) 3.7 H (0-3.6) ng/ml Troponin I 0.071 H* (0.00-0.056) ng/mL C-Reactive Protein (<1.0) mg/dL NT-Pro-B Natriuret Pep 7359 H (0-125) pg/mL Total Protein (6.4-8.2) g/dl Albumin (3.4-5.0) g/dl Globulin gm/dL Albumin/Globulin Ratio (1-2) Triglycerides 81 (<150) mg/dL Cholesterol 102 (<200) mg/dL LDL Cholesterol Direct 68 (<100) mg/dL HDL Cholesterol 24.0 L (40-59) mg/dL TSH 3rd Generation (0.358-3.74) uIU/mL Urine Color (Yellow) Urine Appearance (Clear) Urine pH (5.0-8.0) Ur Specific [place] (1.005-1.030) Urine Protein (Negative) Urine Glucose (UA) (Negative) Urine Ketones (Negative) Urine Occult Blood (Negative) Urine Nitrite (Negative) Urine Bilirubin (Negative) Urine Urobilinogen (0.2-1.0) Ur Leukocyte Esterase (Negative) Urine RBC (0-5) /hpf Urine WBC (0-5) /hpf Ur Epithelial Cells (0-5) /hpf Urine Bacteria (FEW) /hpf Hyaline Casts (0-5) /lpf Waxy Casts (0-5) /lpf Urine Mucus (FEW) /hpf Med Orders - Current: Current Medications Acetaminophen (Tylenol) 650 mg PO Q4H PRN PRN Reason: Pain (Mild 1-3)/fever Hydrocodone Bitart/Acetaminophen ([place] 325-5 Mg) 1 tab PO Q4H PRN PRN Reason: Pain (moderate 4-6) Albuterol/Ipratropium (Duoneb 3.0-0.5 Mg/3 Ml) 3 ml NEB Q4H PRN PRN Reason: Shortness Of Breath/wheezing Apixaban (Eliquis) 2.5 mg PO BID [facility] Last Admin: 10/20/17 08:23 Dose: 2.5 mg Bisacodyl (Dulcolax) 5 mg PO DAILY PRN PRN Reason: Constipation Diltiazem HCl (Cardizem Cd) 180 mg PO DAILY [facility] Last Admin: 10/20/17 08:24 Dose: 180 mg Docusate Sodium (Colace) 100 mg PO BID PRN PRN Reason: Constipation Hydralazine HCl (Apresoline) 20 mg IVPUSH Q4H PRN PRN Reason: Hypertension Hydromorphone HCl (Dilaudid) 0.5 mg IVPUSH Q2H PRN PRN Reason: Pain (severe 7-10) Promethazine HCl 12.5 mg/ (Sodium Chloride) 50.5 mls @ 100 mls/hr IV Q6H PRN PRN Reason: Nausea/Vomiting Diltiazem HCl 125 mg/ Sodium (Chloride) 125 mls @ 5 mls/hr IV TITRATE [facility]; Protocol Last Titration: 10/20/17 09:45 Dose: 0 mg/hr, 0 mls/hr Lorazepam (Ativan) 2 mg IVPUSH Q4H PRN PRN Reason: Seizures Lorazepam (Ativan) 1 mg IV Q6H PRN PRN Reason: Anxiety Last Admin: 10/20/17 04:09 Dose: 1 mg Magnesium Sulfate (Pharmacy To Dose - Magnesium Replacement) 0 dose .XX ASDIRECTED PRN PRN Reason: RX TO WATCH MAG LEVELS Metoprolol Tartrate (Lopressor) 50 mg PO Q12HR [facility] Last Admin: 10/20/17 08:21 Dose: 50 mg Metoprolol Tartrate (Lopressor) 5 mg IVPUSH Q4H PRN PRN Reason: Tachycardia Ondansetron HCl (Zofran) 4 mg IV Q6H PRN PRN Reason: Nausea/Vomiting Polyethylene Glycol (Miralax) 17 gm PO DAILY PRN PRN Reason: Constipation Potassium Chloride (Pharmacy To Dose - Potassium Replacement) 0 dose .XX ASDIRECTED PRN PRN Reason: RX TO WATCH K LEVELS Senna/Docusate Sodium (Senna Plus) 1 tab PO BID PRN PRN Reason: Constipation Sodium Chloride (Saline Flush) 10 ml FLUSH ASDIRECTED PRN PRN Reason: Keep Vein Open Last Admin: 10/19/17 17:33 Dose: 10 ml Temazepam (Restoril) 15 mg PO BEDTIME PRN PRN Reason: Sleep Discontinued Medications Apixaban (Eliquis) 5 mg PO ONETIME ONE Stop: 10/19/17 21:07 Last Admin: 10/19/17 22:04 Dose: 5 mg Diltiazem HCl (Diltiazem) 10 mg IVPUSH ONETIME ONE Stop: 10/19/17 17:09 Last Admin: 10/19/17 17:28 Dose: 10 mg Diltiazem HCl (Diltiazem) 10 mg IVPUSH ONETIME ONE Stop: 10/19/17 18:26 Last Admin: 10/19/17 18:31 Dose: 10 mg Furosemide (Lasix) 40 mg IVPUSH NOW ONE Stop: 10/19/17 16:59 Last Admin: 10/19/17 17:27 Dose: 40 mg Hydralazine HCl (Apresoline) 10 mg IVPUSH ONETIME ONE Stop: 10/19/17 18:35 Last Admin: 10/19/17 18:55 Dose: 10 mg Diltiazem HCl 125 mg/ Sodium (Chloride) 125 mls @ 10 mls/hr IV ASDIRECTED [facility] Last Admin: 10/19/17 18:57 Dose: 10 mg/hr, 10 mls/hr Metoprolol Tartrate (Lopressor) 50 mg PO ONETIME ONE Stop: 10/19/17 21:05 Last Admin: 10/19/17 22:04 Dose: 50 mg Potassium Chloride (Klor-Con M20) 40 meq PO Q4H [facility] Stop: 10/20/17 12:01 Last Admin: 10/20/17 08:23 Dose: 40 meq - Exam Quality Assessment: No: Supplemental Oxygen General: Alert, Oriented, Cooperative, No Acute Distress HEENT: Pupils Equal, Pupils Reactive, EOMI, Mucous Membr. Moist/[place] Neck: Supple, Trachea Midline. No: Lymphadenopathy Lungs: Normal Respiratory Effort, Crackles (Very faint crackles posteriorly in b /l bases ) Cardiovascular: Regular Rate, No Murmurs, Irregular Rhythm GI/Abdominal Exam: Normal Bowel Sounds, Soft, Non-Tender, No Distention (Male) Exam: Deferred Back Exam: Normal Inspection, Full Range of Motion Extremities: Normal Inspection, Normal Range of Motion, Non-Tender, Pedal Edema (trace to 1+ b/l LE) Peripheral Pulses: 2+: Radial (L), Radial (R), Posterior Tibial (L), Posterior Tibial (R), Dorsalis Pedis (L), Dorsalis Pedis (R) Skin: Warm, Dry, Intact Neurological: No New Focal Deficit, Strength Equal Bilateral, Cranial Nerves Intact (grossly) Psy/Mental Status: Alert, Normal Affect, Normal Mood - Problem List Review Problem List Initiated/Reviewed/Updated: Yes - My Orders Last 24 Hours: My Active Orders 10/20/17 09:34 Activity as Tolerated [RC] .Routine May Shower [RC] ASDIRECTED - Plan Plan:: Assessment/Plan: Acute: Atrial Fibrillation with RVR * 2:1 conduction * New Onset * Suspect 2/2 acute congestive heart failure * Risk Factors: HF, HTN, CKD and Medical Non-Compliance * He drinks coffee but not much and denies drinking energy drinks (Monster or 5 hour drinks) * TSH ordered and is 1.573 * Currently on Cardizem drip --> has transitioned to oral * CHA2D2 -VASc Score is at least 3: Stroke risk was 3.2% per year in >90,000 patients (the [place] Atrial Fibrillation Cohort Study) and 4.6% risk of stroke/ TIA/systemic embolism * Offered Warfarin vs NOACs; patient selected Eliquis; will order 2.5 mg po BID with renal function Heart Failure with Unknown EF * New vs Old * ProBNP 7359 today, was 9267 in ED * Has clinical signs of volume overload with reported 15# weight gain in past 2- 3 weeks * Patient also reports orthopnea and PND * 2D echo ordered and read as EF 35%, akinesis of septal left ventricular wall, severely dilated left and right atrium, mod-severe MR, mod-severe TR, severely elevated right ventricular systolic pressure * Heart Failure Protocol: diuretics, Is/Os, salt and fluid restrictions --> received Lasix 40 mg IV push x1 in ED; will order Lasix 20 mg po daily with KCl 20 mEq po daily * Per ED notes, patient went to [place] walk[facility] 2 days ago and was prescribed metoprolol 25 mg BID and apparently lisinopril/hydrochlorothiazide with dosage unknown * Metoprolol 50 mg po q 12 hr ordered during admission * Consider lisinopril alone at discharge * Lipid panel: Total 102, LDL 68, HDL 24 * Patient will require close PCP follow-up --> he is agreeable to seeing a provider in [place] but would like to make his own appointment Slightly Elevated Troponin Level * Troponin 0.071 today, was 0.068 in ED; CKMB 3.7 today, was 7.2 in ED * Likely from CKD and Heart Strain from Atrial Flutter Acute vs CKD Stage 3 * We have no previous records * BUN 73, Cr 2.4, eGFR 27 today; BUN 74, Cr 2.5, eGFR 26 in ED * Monitor renal function Malignant HTN * Per ED notes, patient went to [place] walk[facility] 2 days ago and was prescribed metoprolol 25 mg twice a day and apparently lisinopril/ hydrochlorothiazide with dosage unknown --> requested these records * Non-compliance * Documented BP of 154/129 and 165/100 mmHg --> improved today * Hydralazine prn BP >140/90 * Discharge antihypertensives in line with heart failure core measures Hypokalemia * K 3.0 today, was 3.6 in ED * Likely 2/2 volume status * Pharmacy to replete * Will order KCl 20 mEq po daily with Lasix order * Monitor Hyperglycemia * Glucose 160 today * Likely 2/2 current medical state; however, concern that patient may have underlying diabetes * Patient does report polyphagia * Will order Hgb A1c Plan: Admit to ICU Cardizem drip titrate to keep HR < 100 with transition to oral as indicated Hold Home Meds Metoprolol 50 mg po BID Routine AM Labs Will obtain chart from his old PCP ProBNP level in AM 2D echo pending SW/CM for d/c planning Code status: 1 <Adriana Dumont T - Last Filed: 10/20/17 20:06> - Patient Data Vitals - Most Recent: Last Vital Signs Temp 36.5 C 10/20/17 16:00 Pulse 129 H 10/20/17 17:41 Resp 16 10/20/17 11:55 BP 139/94 H 10/20/17 17:41 Pulse Ox 100 10/20/17 16:00 I&O - Last 24 Hours: Intake & Output 10/20/17 10/20/17 10/20/17 06:59 14:59 22:59 Intake Total 240 866 240 Output Total 350 200 Balance -110 666 240 Lab Results Last 24 Hours: Laboratory Results - last 24 hr 10/19/17 10/20/17 10/20/17 Range/Units 21:10 05:50 05:50 WBC 6.90 (4.23-9.07) K/mm3 RBC 5.12 (4.63-6.08) M/mm3 Hgb 13.3 L (13.7-17.5) gm/L Hct 41.8 (40.1-51.0) % MCV 81.6 (79.0-92.2) fl MCH 26.0 (25.7-32.2) pg MCHC 31.8 L (32.2-35.5) g/dl RDW Std Deviation 54.5 H (35.1-43.9) fL Plt Count 234 (163-337) K/mm3 MPV 9.7 (9.4-12.3) fl Neut % (Auto) 73.5 H (34.0-67.9) % Lymph % (Auto) 12.9 L (21.8-53.1) % [place] % (Auto) 10.7 (5.3-12.2) % Eos % (Auto) 2.5 (0.8-7.0) Baso % (Auto) 0.3 (0.1-1.2) % Neut # (Auto) 5.07 (1.78-5.38) K/mm3 Lymph # (Auto) 0.89 L (1.32-3.57) K/mm3 [place] # (Auto) 0.74 (0.30-0.82) K/mm3 Eos # (Auto) 0.17 (0.04-0.54) K/mm3 Baso # (Auto) 0.02 (0.01-0.08) K/mm3 Sodium 140 (136-145) mEq/L Potassium 3.0 L (3.5-5.1) mEq/L Chloride 106 (98-107) mEq/L Carbon Dioxide 25 (21-32) mEq/L Anion Gap 12.0 (5-15) BUN 73 H (7-18) mg/dL Creatinine 2.4 H (0.7-1.3) mg/dL Est Cr Clr Drug Dosing 30.84 mL/min Estimated GFR (MDRD) 27 (>60) mL/min BUN/Creatinine Ratio 30.4 H (14-18) Glucose 160 H (80-115) mg/dL Hemoglobin A1c (4.50-6.20) % Calcium 8.1 L (8.5-10.1) mg/dL Magnesium 2.5 H (1.8-2.4) mg/dl CK-MB (CK-2) 3.7 H (0-3.6) ng/ml Troponin I 0.071 H* (0.00-0.056) ng/mL NT-Pro-B Natriuret Pep (0-125) pg/mL Triglycerides 81 (<150) mg/dL Cholesterol 102 (<200) mg/dL LDL Cholesterol Direct 68 (<100) mg/dL HDL Cholesterol 24.0 L (40-59) mg/dL Urine Color Light yellow (Yellow) Urine Appearance Clear (Clear) Urine pH 6.0 (5.0-8.0) Ur Specific [place] 1.015 (1.005-1.030) Urine Protein Negative (Negative) Urine Glucose (UA) Negative (Negative) Urine Ketones Negative (Negative) Urine Occult Blood Negative (Negative) Urine Nitrite Negative (Negative) Urine Bilirubin Negative (Negative) Urine Urobilinogen 0.2 (0.2-1.0) Ur Leukocyte Esterase Negative (Negative) Urine RBC 0-5 (0-5) /hpf Urine WBC 0-5 (0-5) /hpf Ur Epithelial Cells 0-5 (0-5) /hpf Urine Bacteria Rare (FEW) /hpf Hyaline Casts 0-5 (0-5) /lpf Waxy Casts 0-5 (0-5) /lpf Urine Mucus Not seen (FEW) /hpf 10/20/17 10/20/17 10/20/17 Range/Units 05:50 12:25 12:25 WBC (4.23-9.07) K/mm3 RBC (4.63-6.08) M/mm3 Hgb (13.7-17.5) gm/L Hct (40.1-51.0) % MCV (79.0-92.2) fl MCH (25.7-32.2) pg MCHC (32.2-35.5) g/dl RDW Std Deviation (35.1-43.9) fL Plt Count (163-337) K/mm3 MPV (9.4-12.3) fl Neut % (Auto) (34.0-67.9) % Lymph % (Auto) (21.8-53.1) % [place] % (Auto) (5.3-12.2) % Eos % (Auto) (0.8-7.0) Baso % (Auto) (0.1-1.2) % Neut # (Auto) (1.78-5.38) K/mm3 Lymph # (Auto) (1.32-3.57) K/mm3 [place] # (Auto) (0.30-0.82) K/mm3 Eos # (Auto) (0.04-0.54) K/mm3 Baso # (Auto) (0.01-0.08) K/mm3 Sodium (136-145) mEq/L Potassium (3.5-5.1) mEq/L Chloride (98-107) mEq/L Carbon Dioxide (21-32) mEq/L Anion Gap (5-15) BUN (7-18) mg/dL Creatinine (0.7-1.3) mg/dL Est Cr Clr Drug Dosing mL/min Estimated GFR (MDRD) (>60) mL/min BUN/Creatinine Ratio (14-18) Glucose (80-115) mg/dL Hemoglobin A1c 5.70 (4.50-6.20) % Calcium (8.5-10.1) mg/dL Magnesium (1.8-2.4) mg/dl CK-MB (CK-2) 4.9 H (0-3.6) ng/ml Troponin I 0.051 (0.00-0.056) ng/mL NT-Pro-B Natriuret Pep 7359 H (0-125) pg/mL Triglycerides (<150) mg/dL Cholesterol (<200) mg/dL LDL Cholesterol Direct (<100) mg/dL HDL Cholesterol (40-59) mg/dL Urine Color (Yellow) Urine Appearance (Clear) Urine pH (5.0-8.0) Ur Specific [place] (1.005-1.030) Urine Protein (Negative) Urine Glucose (UA) (Negative) Urine Ketones (Negative) Urine Occult Blood (Negative) Urine Nitrite (Negative) Urine Bilirubin (Negative) Urine Urobilinogen (0.2-1.0) Ur Leukocyte Esterase (Negative) Urine RBC (0-5) /hpf Urine WBC (0-5) /hpf Ur Epithelial Cells (0-5) /hpf Urine Bacteria (FEW) /hpf Hyaline Casts (0-5) /lpf Waxy Casts (0-5) /lpf Urine Mucus (FEW) /hpf Med Orders - Current: Current Medications Acetaminophen (Tylenol) 650 mg PO Q4H PRN PRN Reason: Pain (Mild 1-3)/fever Hydrocodone Bitart/Acetaminophen ([place] 325-5 Mg) 1 tab PO Q4H PRN PRN Reason: Pain (moderate 4-6) Albuterol/Ipratropium (Duoneb 3.0-0.5 Mg/3 Ml) 3 ml NEB Q4H PRN PRN Reason: Shortness Of Breath/wheezing Apixaban (Eliquis) 2.5 mg PO BID [facility] Last Admin: 10/20/17 08:23 Dose: 2.5 mg Bisacodyl (Dulcolax) 5 mg PO DAILY PRN PRN Reason: Constipation Docusate Sodium (Colace) 100 mg PO BID PRN PRN Reason: Constipation Furosemide (Lasix) 20 mg PO DAILY [facility] Hydralazine HCl (Apresoline) 20 mg IVPUSH Q4H PRN PRN Reason: Hypertension Hydromorphone HCl (Dilaudid) 0.5 mg IVPUSH Q2H PRN PRN Reason: Pain (severe 7-10) Promethazine HCl 12.5 mg/ (Sodium Chloride) 50.5 mls @ 100 mls/hr IV Q6H PRN PRN Reason: Nausea/Vomiting Lorazepam (Ativan) 2 mg IVPUSH Q4H PRN PRN Reason: Seizures Lorazepam (Ativan) 1 mg IV Q6H PRN PRN Reason: Anxiety Last Admin: 10/20/17 04:09 Dose: 1 mg Magnesium Sulfate (Pharmacy To Dose - Magnesium Replacement) 0 dose .XX ASDIRECTED PRN PRN Reason: RX TO WATCH MAG LEVELS Metoprolol Tartrate (Lopressor) 50 mg PO Q12HR [facility] Last Admin: 10/20/17 08:21 Dose: 50 mg Metoprolol Tartrate (Lopressor) 5 mg IVPUSH Q4H PRN PRN Reason: Tachycardia Last Admin: 10/20/17 17:41 Dose: 5 mg Ondansetron HCl (Zofran) 4 mg IV Q6H PRN PRN Reason: Nausea/Vomiting Polyethylene Glycol (Miralax) 17 gm PO DAILY PRN PRN Reason: Constipation Potassium Chloride (Pharmacy To Dose - Potassium Replacement) 0 dose .XX ASDIRECTED PRN PRN Reason: RX TO WATCH K LEVELS Potassium Chloride (Klor-Con M20) 20 meq PO DAILY [facility] Senna/Docusate Sodium (Senna Plus) 1 tab PO BID PRN PRN Reason: Constipation Sodium Chloride (Saline Flush) 10 ml FLUSH ASDIRECTED PRN PRN Reason: Keep Vein Open Last Admin: 10/19/17 17:33 Dose: 10 ml Temazepam (Restoril) 15 mg PO BEDTIME PRN PRN Reason: Sleep Discontinued Medications Apixaban (Eliquis) 5 mg PO ONETIME ONE Stop: 10/19/17 21:07 Last Admin: 10/19/17 22:04 Dose: 5 mg Diltiazem HCl (Diltiazem) 10 mg IVPUSH ONETIME ONE Stop: 10/19/17 17:09 Last Admin: 10/19/17 17:28 Dose: 10 mg Diltiazem HCl (Diltiazem) 10 mg IVPUSH ONETIME ONE Stop: 10/19/17 18:26 Last Admin: 10/19/17 18:31 Dose: 10 mg Diltiazem HCl (Cardizem Cd) 180 mg PO DAILY [facility] Last Admin: 10/20/17 08:24 Dose: 180 mg Diltiazem HCl (Dilacor Xr) 240 mg PO DAILY [facility] Furosemide (Lasix) 40 mg IVPUSH NOW ONE Stop: 10/19/17 16:59 Last Admin: 10/19/17 17:27 Dose: 40 mg Hydralazine HCl (Apresoline) 10 mg IVPUSH ONETIME ONE Stop: 10/19/17 18:35 Last Admin: 10/19/17 18:55 Dose: 10 mg Diltiazem HCl 125 mg/ Sodium (Chloride) 125 mls @ 10 mls/hr IV ASDIRECTED [facility] Last Admin: 10/19/17 18:57 Dose: 10 mg/hr, 10 mls/hr Diltiazem HCl 125 mg/ Sodium (Chloride) 125 mls @ 5 mls/hr IV TITRATE [facility]; Protocol Last Titration: 10/20/17 09:45 Dose: 0 mg/hr, 0 mls/hr Metoprolol Tartrate (Lopressor) 50 mg PO ONETIME ONE Stop: 10/19/17 21:05 Last Admin: 10/19/17 22:04 Dose: 50 mg Potassium Chloride (Klor-Con M20) 40 meq PO Q4H [facility] Stop: 10/20/17 12:01 Last Admin: 10/20/17 12:45 Dose: 40 meq - My Orders Last 24 Hours: My Active Orders 10/19/17 20:51 Resuscitation Status Routine 10/19/17 21:07 LORazepam [Ativan] 2 mg IVPUSH Q4H PRN Metoprolol Tartrate [Lopressor] 5 mg IVPUSH Q4H PRN hydrALAZINE [Apresoline] 20 mg IVPUSH Q4H PRN 10/19/17 21:08 Height and Weight [RC] 0400 Intake and Output [RC] ,16 Oxygen Therapy [RC] PRN VTE/DVT Education [RC] Consult to Case Management [CONS] Routine Consult to Assembler Final [CONS] Routine Consult to Spiritual Care [CONS] Routine Acetaminophen [Tylenol] 650 mg PO Q4H PRN Acetaminophen/HYDROcodone [[place] 325-5 MG] 1 tab PO Q4H PRN Albuterol/Ipratropium [DuoNeb 3.0-0.5 MG/3 ML] 3 ml NEB Q4H PRN Bisacodyl [Dulcolax] 5 mg PO DAILY PRN Docusate Sodium [Colace] 100 mg PO BID PRN Docusate Sodium/Sennosides [Senna Plus] 1 tab PO BID PRN HYDROmorphone [Dilaudid] 0.5 mg IVPUSH Q2H PRN LORazepam [Ativan] 1 mg IV Q6H PRN Ondansetron [Zofran] 4 mg IV Q6H PRN Polyethylene Glycol 3350 [MiraLAX] 17 gm PO DAILY PRN Promethazine [Phenergan] 12.5 mg Sodium Chloride 0.9% [Normal Saline] 50 ml IV Q6H Temazepam [Restoril] 15 mg PO BEDTIME PRN 10/19/17 21:09 RT Aerosol Therapy [RC] ASDIRECTED 10/19/17 21:15 Magnesium Rep Pharmacy to Dose [Pharmacy to Dose - Magnesium Replacement] 0 dose .XX ASDIRECTED PRN Potassium Rep Pharmacy to Dose [Pharmacy to Dose - Potassium Replacement] 0 dose .XX ASDIRECTED PRN 10/20/17 09:00 Apixaban [Eliquis] 2.5 mg PO BID Metoprolol Tartrate [Lopressor] 50 mg PO Q12HR 10/20/17 19:35 EKG 12 Lead [EK] Urgent 10/20/17 19:38 EKG Documentation Completion [RC] ASDIRECTED 10/21/17 05:11 BASIC METABOLIC PANEL,BMP [CHEM] AM MAGNESIUM [CHEM] AM PRO B-TYPE NATRIUR PEPT,BNPPRO [CHEM] DAILY 10/22/17 05:11 BASIC METABOLIC PANEL,BMP [CHEM] AM MAGNESIUM [CHEM] AM - Plan Plan:: Patient was seen and examined at bedside in concert with the PA student. The assessment and plans were discussed and agreed upon with me. 2D echo 10/20/2017 report reads LVEF of 35%, Akinesis of Septal LV bennett, Severely dilated Dilated R/L Atrium, and Moderate-Severe M/T Regurgitation. patient has cardiomyopathy likely ischemic. He now has compensated HFrEF with AF requiring rate control and requires 2 drugs to do so. With reduced EF, we will d/c CCB and add digoxin to his Metoprolol per Uptodate if this regimen does not give us a good response, we will proceed with guidelines from 2014 AHA/ACC/HRS for either Amiodarone/ Dofetilide or Catheter Ablation. Once patient is stable will refer him to cardiology for further management.
[2017-10-20] MEDS: Metoprolol Tartrate 5 MG/5 ML SDV IVPUSH PRN (17:41)
[2017-10-20] MEDS: Calcium Carbonate 500 MG Tab.Chew PO PRN (20:39)
[2017-10-20] MEDS: Temazepam 15 MG Cap PO PRN (21:38)
[2017-10-20] MEDS: Digoxin 500 MCG/2 ML Amp IVPUSH SCH (22:40)
[2017-10-21] MEDS: Digoxin 500 MCG/2 ML Amp IVPUSH SCH ×2 (01:59→08:47)
[2017-10-21] MEDS: LORazepam 2 MG/ML SDV IV PRN ×3 (01:59→21:28)
--- NOTE | 2017-10-21 06:51 | PCM.PN ---
- General Info Date of Service: 10/21/17 Admission Dx/Problem (Free Text): Admission Diagnosis/Problem Admission Diagnosis/Problem Atrial fibrillation Subjective Update: Follow up Functional Status: Reports: Pain Controlled, Tolerating Diet, Ambulating, Urinating - Review of Systems General: Denies: Fever, Weakness, Fatigue, Malaise, Chills HEENT: Reports: No Symptoms Pulmonary: Denies: Shortness of Breath, Pleuritic Chest Pain, Cough Cardiovascular: Denies: Chest Pain, Palpitations, Dyspnea on Exertion, Edema, Lightheadedness Gastrointestinal: Denies: Abdominal Pain, Nausea, Vomiting Genitourinary: Reports: No Symptoms Musculoskeletal: Reports: No Symptoms Skin: Denies: Cyanosis, Pallor, Diaphoresis, Bruising Neurological: Denies: Confusion, Dizziness, Headache, Seizure, Syncope, Difficulty Walking, Weakness, Gait Disturbance Psychiatric: Denies: Depression, Anxiety, Agitation, Hallucinations Systems Review Comment:: No overnight or acute issues. He slept good and feels well this AM. However his HR fluctuates in the low hundreds to teens. He has no complaints. - Patient Data Vitals - Most Recent: Last Vital Signs Temp 36.6 C 10/21/17 04:00 Pulse 84 10/21/17 01:59 Resp 16 10/21/17 04:00 BP 116/85 10/21/17 04:00 Pulse Ox 97 10/21/17 04:00 Weight - Most Recent: 99.019 kg I&O - Last 24 Hours: Intake & Output 10/20/17 10/20/17 10/21/17 14:59 22:59 06:59 Intake Total 866 1040 400 Output Total 200 Balance 666 1040 400 Lab Results Last 24 Hours: Laboratory Results - last 24 hr 10/20/17 10/20/17 10/20/17 Range/Units 05:50 05:50 12:25 Sodium 140 (136-145) mEq/L Potassium 3.0 L (3.5-5.1) mEq/L Chloride 106 (98-107) mEq/L Carbon Dioxide 25 (21-32) mEq/L Anion Gap 12.0 (5-15) BUN 73 H (7-18) mg/dL Creatinine 2.4 H (0.7-1.3) mg/dL Est Cr Clr Drug Dosing 30.84 mL/min Estimated GFR (MDRD) 27 (>60) mL/min BUN/Creatinine Ratio 30.4 H (14-18) Glucose 160 H (80-115) mg/dL Hemoglobin A1c (4.50-6.20) % Calcium 8.1 L (8.5-10.1) mg/dL Magnesium 2.5 H (1.8-2.4) mg/dl CK-MB (CK-2) 3.7 H 4.9 H (0-3.6) ng/ml Troponin I 0.071 H* 0.051 (0.00-0.056) ng/mL NT-Pro-B Natriuret Pep 7359 H (0-125) pg/mL Triglycerides 81 (<150) mg/dL Cholesterol 102 (<200) mg/dL LDL Cholesterol Direct 68 (<100) mg/dL HDL Cholesterol 24.0 L (40-59) mg/dL 10/20/17 Range/Units 12:25 Sodium (136-145) mEq/L Potassium (3.5-5.1) mEq/L Chloride (98-107) mEq/L Carbon Dioxide (21-32) mEq/L Anion Gap (5-15) BUN (7-18) mg/dL Creatinine (0.7-1.3) mg/dL Est Cr Clr Drug Dosing mL/min Estimated GFR (MDRD) (>60) mL/min BUN/Creatinine Ratio (14-18) Glucose (80-115) mg/dL Hemoglobin A1c 5.70 (4.50-6.20) % Calcium (8.5-10.1) mg/dL Magnesium (1.8-2.4) mg/dl CK-MB (CK-2) (0-3.6) ng/ml Troponin I (0.00-0.056) ng/mL NT-Pro-B Natriuret Pep (0-125) pg/mL Triglycerides (<150) mg/dL Cholesterol (<200) mg/dL LDL Cholesterol Direct (<100) mg/dL HDL Cholesterol (40-59) mg/dL Med Orders - Current: Current Medications Acetaminophen (Tylenol) 650 mg PO Q4H PRN PRN Reason: Pain (Mild 1-3)/fever Hydrocodone Bitart/Acetaminophen ([place] 325-5 Mg) 1 tab PO Q4H PRN PRN Reason: Pain (moderate 4-6) Albuterol/Ipratropium (Duoneb 3.0-0.5 Mg/3 Ml) 3 ml NEB Q4H PRN PRN Reason: Shortness Of Breath/wheezing Apixaban (Eliquis) 2.5 mg PO BID [facility] Last Admin: 10/20/17 21:38 Dose: 2.5 mg Bisacodyl (Dulcolax) 5 mg PO DAILY PRN PRN Reason: Constipation Calcium Carbonate/Glycine (Tums) 1,000 mg PO Q2HR PRN PRN Reason: Indigestion Last Admin: 10/20/17 20:39 Dose: 1,000 mg Digoxin (Lanoxin) 125 mcg IVPUSH Q6H [facility] Stop: 10/21/17 08:16 Last Admin: 10/21/17 01:59 Dose: 125 mcg Docusate Sodium (Colace) 100 mg PO BID PRN PRN Reason: Constipation Furosemide (Lasix) 20 mg PO DAILY [facility] Hydralazine HCl (Apresoline) 20 mg IVPUSH Q4H PRN PRN Reason: Hypertension Hydromorphone HCl (Dilaudid) 0.5 mg IVPUSH Q2H PRN PRN Reason: Pain (severe 7-10) Promethazine HCl 12.5 mg/ (Sodium Chloride) 50.5 mls @ 100 mls/hr IV Q6H PRN PRN Reason: Nausea/Vomiting Lorazepam (Ativan) 2 mg IVPUSH Q4H PRN PRN Reason: Seizures Lorazepam (Ativan) 1 mg IV Q6H PRN PRN Reason: Anxiety Last Admin: 10/21/17 01:59 Dose: 1 mg Magnesium Sulfate (Pharmacy To Dose - Magnesium Replacement) 0 dose .XX ASDIRECTED PRN PRN Reason: RX TO WATCH MAG LEVELS Metoprolol Tartrate (Lopressor) 50 mg PO Q12HR [facility] Last Admin: 10/20/17 22:41 Dose: Not Given Metoprolol Tartrate (Lopressor) 5 mg IVPUSH Q4H PRN PRN Reason: Tachycardia Last Admin: 10/20/17 17:41 Dose: 5 mg Ondansetron HCl (Zofran) 4 mg IV Q6H PRN PRN Reason: Nausea/Vomiting Polyethylene Glycol (Miralax) 17 gm PO DAILY PRN PRN Reason: Constipation Potassium Chloride (Pharmacy To Dose - Potassium Replacement) 0 dose .XX ASDIRECTED PRN PRN Reason: RX TO WATCH K LEVELS Potassium Chloride (Klor-Con M20) 20 meq PO DAILY [facility] Senna/Docusate Sodium (Senna Plus) 1 tab PO BID PRN PRN Reason: Constipation Sodium Chloride (Saline Flush) 10 ml FLUSH ASDIRECTED PRN PRN Reason: Keep Vein Open Last Admin: 10/19/17 17:33 Dose: 10 ml Temazepam (Restoril) 15 mg PO BEDTIME PRN PRN Reason: Sleep Last Admin: 10/20/17 21:38 Dose: 15 mg Discontinued Medications Apixaban (Eliquis) 5 mg PO ONETIME ONE Stop: 10/19/17 21:07 Last Admin: 10/19/17 22:04 Dose: 5 mg Diltiazem HCl (Diltiazem) 10 mg IVPUSH ONETIME ONE Stop: 10/19/17 17:09 Last Admin: 10/19/17 17:28 Dose: 10 mg Diltiazem HCl (Diltiazem) 10 mg IVPUSH ONETIME ONE Stop: 10/19/17 18:26 Last Admin: 10/19/17 18:31 Dose: 10 mg Diltiazem HCl (Cardizem Cd) 180 mg PO DAILY [facility] Last Admin: 10/20/17 08:24 Dose: 180 mg Diltiazem HCl (Dilacor Xr) 240 mg PO DAILY [facility] Furosemide (Lasix) 40 mg IVPUSH NOW ONE Stop: 10/19/17 16:59 Last Admin: 10/19/17 17:27 Dose: 40 mg Hydralazine HCl (Apresoline) 10 mg IVPUSH ONETIME ONE Stop: 10/19/17 18:35 Last Admin: 10/19/17 18:55 Dose: 10 mg Diltiazem HCl 125 mg/ Sodium (Chloride) 125 mls @ 10 mls/hr IV ASDIRECTED [facility] Last Admin: 10/19/17 18:57 Dose: 10 mg/hr, 10 mls/hr Diltiazem HCl 125 mg/ Sodium (Chloride) 125 mls @ 5 mls/hr IV TITRATE [facility]; Protocol Last Titration: 10/20/17 09:45 Dose: 0 mg/hr, 0 mls/hr Metoprolol Tartrate (Lopressor) 50 mg PO ONETIME ONE Stop: 10/19/17 21:05 Last Admin: 10/19/17 22:04 Dose: 50 mg Potassium Chloride (Klor-Con M20) 40 meq PO Q4H [facility] Stop: 10/20/17 12:01 Last Admin: 10/20/17 12:45 Dose: 40 meq - Exam General: Alert, Oriented, Cooperative, No Acute Distress HEENT: Pupils Equal, Pupils Reactive, EOMI, Mucous Membr. Moist/[place] Neck: Supple, Trachea Midline, No JVD Lungs: Normal Respiratory Effort, Decreased Breath Sounds Cardiovascular: Irregular Rhythm GI/Abdominal Exam: Normal Bowel Sounds, Soft, Non-Tender, No Organomegaly, No Distention, No Abnormal Bruit, No Mass (Male) Exam: Deferred Back Exam: Normal Inspection, Decreased Range of Motion Extremities: Normal Inspection, Normal Range of Motion, Non-Tender, No Pedal Edema, Normal Capillary Refill Peripheral Pulses: 2+: Dorsalis Pedis (L), Dorsalis Pedis (R) Skin: Warm, Dry, Intact Neurological: No New Focal Deficit Psy/Mental Status: Alert, Normal Affect, Normal Mood. No: Anxious, Agitated - Problem List Review Problem List Initiated/Reviewed/Updated: Yes - My Orders Last 24 Hours: My Active Orders 10/20/17 09:00 Apixaban [Eliquis] 2.5 mg PO BID Metoprolol Tartrate [Lopressor] 50 mg PO Q12HR 10/20/17 19:35 EKG 12 Lead [EK] Urgent 10/20/17 19:38 EKG Documentation Completion [RC] ASDIRECTED 10/20/17 20:00 Calcium Carbonate [Tums] 1,000 mg PO Q2HR PRN 10/20/17 20:15 Digoxin [Lanoxin] 125 mcg IVPUSH Q6H 10/21/17 05:55 BASIC METABOLIC PANEL,BMP [CHEM] AM MAGNESIUM [CHEM] AM PRO B-TYPE NATRIUR PEPT,BNPPRO [CHEM] DAILY 10/22/17 05:11 BASIC METABOLIC PANEL,BMP [CHEM] AM MAGNESIUM [CHEM] AM - Plan Plan:: Acute: Atrial Flutter now without RVR * 2:1 conduction * New Onset * Suspect 2/2 acute congestive heart failure * Risk Factors: HF, HTN, CKD and Medical Non-Compliance * He drinks coffee but not much and denies drinking energy drinks (Monster or 5 hour drinks) * TSH ordered and is 1.573 * He was on cardizem drip but then switch to BB and Digoxn after his 2D echo report came back * CHA2D2 -VASc Score is at least 3: Stroke risk was 3.2% per year in >90,000 patients (the [place] Atrial Fibrillation Cohort Study) and 4.6% risk of stroke/ TIA/systemic embolism * Offered Warfarin vs NOACs; patient selected Eliquis; will order 2.5 mg po BID with renal function Heart Failure with Reduced EF of 35% likely from Probable Ischemic Cardiomyopathty * New vs Old * ProBNP 7359 today, was 9267 in ED * Has clinical signs of volume overload with reported 15# weight gain in past 2- 3 weeks * Patient also reports orthopnea and PND * 2D echo ordered and read as EF 35%, akinesis of septal left ventricular wall, severely dilated left and right atrium, mod-severe MR, mod-severe TR, severely elevated right ventricular systolic pressure * Heart Failure Protocol: diuretics, Is/Os, salt and fluid restrictions --> received Lasix 40 mg IV push x1 in ED; will order Lasix 20 mg po daily with KCl 20 mEq po daily * Per ED notes, patient went to [place] [facility] 2 days ago and was prescribed metoprolol 25 mg BID and apparently lisinopril/hydrochlorothiazide with dosage unknown * Metoprolol 50 mg po q 12 hr ordered during admission * Consider lisinopril alone at discharge * Lipid panel: Total 102, LDL 68, HDL 24--> he needs to be on statin * Started Core measure drugs: ACEI, Spironolactone, Statin and ASA; He is already on BB and Lasix * Patient will require close PCP follow-up --> he is agreeable to seeing a provider in [place] but would like to make his own appointment Malignant HTN, Improved * Per ED notes, patient went to [place] [facility] 2 days ago and was prescribed metoprolol 25 mg twice a day and apparently lisinopril/ hydrochlorothiazide with dosage unknown --> requested these records * Non-compliance * Documented BP of 154/129 and 165/100 mmHg --> improved today * Hydralazine prn BP >140/90 * Added HF core measure medications * Discharge antihypertensives in line with heart failure core measures Hyperglycemia * Likely 2/2 stress * Glucose 160--> 91 today * Likely 2/2 current medical state; however, concern that patient may have underlying diabetes * Patient does report polyphagia * Hgb A1c is 5.7 Resolved: S/p Hypokalemia * K 3.0 today, was 3.6 in ED--> 4.7 * Likely 2/2 volume status * Pharmacy to replete * Will order KCl 20 mEq po daily with Lasix order * Monitor S/p Slightly Elevated Troponin Level * Troponin 0.071 today, was 0.068 in ED; CKMB 3.7 today, was 7.2 in ED * Likely from CKD and Heart Strain from Atrial Flutter Chronic: CKD Stage 3 * We have no previous records; this is chronic * BUN 73, Cr 2.4, eGFR 27 today; BUN 74, Cr 2.5, eGFR 26 in ED * Monitor renal function Plan: He is clinically stable Adjust rhythm if no response to rate control medications Routine AM Labs ProBNP level in AM Ambulate as tolerated SW/CM for d/c planning Additional orders as above Code status: 1
[2017-10-21] MEDS: Metoprolol Tartrate 50 MG Tab PO SCH ×2 (08:48→21:27)
[2017-10-21] MEDS: Potassium Chloride 20 MEQ Tab.ER PO SCH (08:49)
[2017-10-21] MEDS: Calcium Carbonate 500 MG Tab.Chew PO PRN ×2 (08:49→17:40)
[2017-10-21] MEDS: Furosemide 20 MG Tab PO SCH (08:50)
[2017-10-21] MEDS: Apixaban 5 MG Tab PO SCH ×2 (08:50→21:28)
[2017-10-21] MEDS ORDERED: Diltiazem 240 MG Cap.ER PO SCH (09:00)
[2017-10-21] MEDS ORDERED: Spironolactone 25 MG Tab PO ONE (09:59)
[2017-10-21] MEDS ORDERED: Lisinopril 10 MG Tab PO ONE (10:02)
[2017-10-21] MEDS: Metoprolol Tartrate 5 MG/5 ML SDV IVPUSH PRN ×3 (10:09→18:48)
--- NOTE | 2017-10-21 12:16 | PCM.SN ---
- Free Text/Narrative Note: Patient received his morning dose of Metoprolol 50 mg po and 2nd dose of Digoxin this AM. 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 He would respond shortly but then go back up in the 120s-130s. His repeat EKG shows aflutter with 3:1 AV conduction and a QRS of 153. Patient a 66 yo with A- Flutter and HFrEF. We tried rate control medications but we could not achieve a good respond. We will go ahead and try Amiodarone Protocol (would prefer Dofetilide) control his abnormal rhythm. Discontinue digoxin at this point.
[2017-10-21] MEDS ORDERED: Oxymetazoline 0.05% Nasal Spray 15 ML Bottle NAS PRN (20:27)
[2017-10-21] MEDS: Aspirin 81 MG Tab.Chew PO SCH (21:27)
[2017-10-21] MEDS: Temazepam 15 MG Cap PO PRN (21:28)
[2017-10-21] MEDS: Ondansetron 4 MG/2 ML SDV IV PRN (21:28)
--- NOTE | 2017-10-22 06:55 | PCM.PN ---
- General Info Date of Service: 10/22/17 Admission Dx/Problem (Free Text): Admission Diagnosis/Problem Admission Diagnosis/Problem Atrial fibrillation Subjective Update: Follow up Functional Status: Reports: Pain Controlled, Tolerating Diet, Ambulating, Urinating. Denies: New Symptoms - Review of Systems General: Denies: Fever, Weakness, Fatigue, Malaise, Chills HEENT: Reports: No Symptoms Pulmonary: Denies: Shortness of Breath Cardiovascular: Denies: Chest Pain, Palpitations, Dyspnea on Exertion, Lightheadedness Gastrointestinal: Denies: Abdominal Pain, Nausea, Vomiting Genitourinary: Reports: No Symptoms Musculoskeletal: Reports: No Symptoms Skin: Denies: Cyanosis, Pallor, Diaphoresis Neurological: Denies: Confusion, Dizziness, Headache, Tingling, Difficulty Walking, Gait Disturbance Psychiatric: Reports: Anxiety. Denies: Depression, Hallucinations Systems Review Comment:: No overnight or acute issues. He feels pretty good. He has no complaints. His HR is now in the upper 70s-90s at rest still on Amiodarone drip. He is scheduled to come off of it by noon. - Patient Data Vitals - Most Recent: Last Vital Signs Temp 36.8 C 10/21/17 21:00 Pulse 97 10/21/17 21:27 Resp 17 10/21/17 20:03 BP 115/68 10/22/17 06:00 Pulse Ox 98 10/21/17 20:45 Weight - Most Recent: 99.518 kg I&O - Last 24 Hours: Intake & Output 10/21/17 10/21/17 10/22/17 14:59 22:59 06:59 Intake Total 160 1300 785 Balance 160 1300 785 Lab Results Last 24 Hours: Laboratory Results - last 24 hr 10/21/17 10/21/17 10/21/17 Range/Units 05:55 05:55 05:55 Sodium 140 (136-145) mEq/L Potassium 4.7 (3.5-5.1) mEq/L Chloride 109 H (98-107) mEq/L Carbon Dioxide 23 (21-32) mEq/L Anion Gap 12.7 (5-15) BUN 77 H (7-18) mg/dL Creatinine 2.4 H (0.7-1.3) mg/dL Est Cr Clr Drug Dosing 30.84 mL/min Estimated GFR (MDRD) 27 (>60) mL/min BUN/Creatinine Ratio 32.1 H (14-18) Glucose 91 (80-115) mg/dL Calcium 8.3 L (8.5-10.1) mg/dL Magnesium 2.6 H (1.8-2.4) mg/dl NT-Pro-B Natriuret Pep 4839 H (0-125) pg/mL Free T4 (0.76-1.46) ng/dL TSH 3rd Generation (0.358-3.74) uIU/mL Digoxin Cancelled 10/21/17 10/21/17 10/21/17 Range/Units 11:00 11:00 11:00 Sodium (136-145) mEq/L Potassium (3.5-5.1) mEq/L Chloride (98-107) mEq/L Carbon Dioxide (21-32) mEq/L Anion Gap (5-15) BUN (7-18) mg/dL Creatinine (0.7-1.3) mg/dL Est Cr Clr Drug Dosing mL/min Estimated GFR (MDRD) (>60) mL/min BUN/Creatinine Ratio (14-18) Glucose (80-115) mg/dL Calcium (8.5-10.1) mg/dL Magnesium (1.8-2.4) mg/dl NT-Pro-B Natriuret Pep (0-125) pg/mL Free T4 1.02 (0.76-1.46) ng/dL TSH 3rd Generation 2.071 (0.358-3.74) uIU/mL Digoxin 0.6 L Med Orders - Current: Current Medications Acetaminophen (Tylenol) 650 mg PO Q4H PRN PRN Reason: Pain (Mild 1-3)/fever Hydrocodone Bitart/Acetaminophen ([place] 325-5 Mg) 1 tab PO Q4H PRN PRN Reason: Pain (moderate 4-6) Albuterol/Ipratropium (Duoneb 3.0-0.5 Mg/3 Ml) 3 ml NEB Q4H PRN PRN Reason: Shortness Of Breath/wheezing Apixaban (Eliquis) 5 mg PO BID [facility] Last Admin: 10/21/17 21:28 Dose: 5 mg Aspirin (Aspirin) 81 mg PO BEDTIME [facility] Last Admin: 10/21/17 21:27 Dose: 81 mg Bisacodyl (Dulcolax) 5 mg PO DAILY PRN PRN Reason: Constipation Calcium Carbonate/Glycine (Tums) 1,000 mg PO Q2HR PRN PRN Reason: Indigestion Last Admin: 10/21/17 17:40 Dose: 1,000 mg Docusate Sodium (Colace) 100 mg PO BID PRN PRN Reason: Constipation Furosemide (Lasix) 20 mg PO DAILY [facility] Last Admin: 10/21/17 08:50 Dose: 20 mg Hydralazine HCl (Apresoline) 20 mg IVPUSH Q4H PRN PRN Reason: Hypertension Last Admin: 10/21/17 17:07 Dose: 20 mg Hydromorphone HCl (Dilaudid) 0.5 mg IVPUSH Q2H PRN PRN Reason: Pain (severe 7-10) Promethazine HCl 12.5 mg/ (Sodium Chloride) 50.5 mls @ 100 mls/hr IV Q6H PRN PRN Reason: Nausea/Vomiting Amiodarone HCl/Dextrose (Nexterone In Dextrose 360 Mg/200 Ml) 360 mg in 200 mls @ 16.7 mls/hr IV ASDIRECTED PERRI; Protocol Stop: 10/22/17 19:16 Last Admin: 10/21/17 19:03 Dose: 16.7 mls/hr Lisinopril (Prinivil) 10 mg PO DAILY [facility] Lorazepam (Ativan) 2 mg IVPUSH Q4H PRN PRN Reason: Seizures Lorazepam (Ativan) 1 mg IV Q6H PRN PRN Reason: Anxiety Last Admin: 10/21/17 21:28 Dose: 1 mg Magnesium Sulfate (Pharmacy To Dose - Magnesium Replacement) 0 dose .XX ASDIRECTED PRN PRN Reason: RX TO WATCH MAG LEVELS Metoprolol Tartrate (Lopressor) 50 mg PO Q12HR PERRI Last Admin: 10/21/17 21:27 Dose: 50 mg Metoprolol Tartrate (Lopressor) 5 mg IVPUSH Q4H PRN PRN Reason: Tachycardia Last Admin: 10/21/17 18:48 Dose: 5 mg Ondansetron HCl (Zofran) 4 mg IV Q6H PRN PRN Reason: Nausea/Vomiting Last Admin: 10/21/17 21:28 Dose: 4 mg Oxymetazoline HCl (Afrin Original 0.05% Nasal [place]) 0 ml VAHE BID PRN PRN Reason: Congestion Last Admin: 10/21/17 21:27 Dose: 1 spray Polyethylene Glycol (Miralax) 17 gm PO DAILY PRN PRN Reason: Constipation Potassium Chloride (Pharmacy To Dose - Potassium Replacement) 0 dose .XX ASDIRECTED PRN PRN Reason: RX TO WATCH K LEVELS Potassium Chloride (Klor-Con M20) 20 meq PO DAILY [facility] Last Admin: 10/21/17 08:49 Dose: 20 meq Senna/Docusate Sodium (Senna Plus) 1 tab PO BID PRN PRN Reason: Constipation Sodium Chloride (Saline Flush) 10 ml FLUSH ASDIRECTED PRN PRN Reason: Keep Vein Open Last Admin: 10/19/17 17:33 Dose: 10 ml Spironolactone (Aldactone) 12.5 mg PO MoWeFr@0900 [facility] Temazepam (Restoril) 15 mg PO BEDTIME PRN PRN Reason: Sleep Last Admin: 10/21/17 21:28 Dose: 15 mg Discontinued Medications Apixaban (Eliquis) 5 mg PO ONETIME ONE Stop: 10/19/17 21:07 Last Admin: 10/19/17 22:04 Dose: 5 mg Apixaban (Eliquis) 2.5 mg PO BID [facility] Last Admin: 10/20/17 21:38 Dose: 2.5 mg Digoxin (Lanoxin) 125 mcg IVPUSH Q6H [facility] Stop: 10/21/17 08:16 Last Admin: 10/21/17 08:47 Dose: 125 mcg Diltiazem HCl (Diltiazem) 10 mg IVPUSH ONETIME ONE Stop: 10/19/17 17:09 Last Admin: 10/19/17 17:28 Dose: 10 mg Diltiazem HCl (Diltiazem) 10 mg IVPUSH ONETIME ONE Stop: 10/19/17 18:26 Last Admin: 10/19/17 18:31 Dose: 10 mg Diltiazem HCl (Cardizem Cd) 180 mg PO DAILY [facility] Last Admin: 10/20/17 08:24 Dose: 180 mg Diltiazem HCl (Dilacor Xr) 240 mg PO DAILY [facility] Furosemide (Lasix) 40 mg IVPUSH NOW ONE Stop: 10/19/17 16:59 Last Admin: 10/19/17 17:27 Dose: 40 mg Hydralazine HCl (Apresoline) 10 mg IVPUSH ONETIME ONE Stop: 10/19/17 18:35 Last Admin: 10/19/17 18:55 Dose: 10 mg Diltiazem HCl 125 mg/ Sodium (Chloride) 125 mls @ 10 mls/hr IV ASDIRECTED PERRI Last Admin: 10/19/17 18:57 Dose: 10 mg/hr, 10 mls/hr Diltiazem HCl 125 mg/ Sodium (Chloride) 125 mls @ 5 mls/hr IV TITRATE PERRI; Protocol Last Titration: 10/20/17 09:45 Dose: 0 mg/hr, 0 mls/hr Amiodarone HCl/Dextrose (Nexterone In Dextrose 360 Mg/200 Ml) 360 mg in 200 mls @ 33.333 mls/hr IV ASDIRECTED PERRI; Protocol Last Admin: 10/21/17 12:53 Dose: 33.333 mls/hr Amiodarone HCl/Dextrose (Nexterone In Dextrose 150 Mg/100 Ml) 100 mls @ 600 mls /hr IV .BOLUS ONE; Protocol Stop: 10/21/17 12:25 Last Admin: 10/21/17 12:32 Dose: 600 mls/hr Lisinopril (Prinivil) 10 mg PO ONETIME ONE Stop: 10/21/17 10:03 Last Admin: 10/21/17 10:15 Dose: 10 mg Metoprolol Tartrate (Lopressor) 50 mg PO ONETIME ONE Stop: 10/19/17 21:05 Last Admin: 10/19/17 22:04 Dose: 50 mg Potassium Chloride (Klor-Con M20) 40 meq PO Q4H PERRI Stop: 10/20/17 12:01 Last Admin: 10/20/17 12:45 Dose: 40 meq Spironolactone (Aldactone) 12.5 mg PO ONETIME ONE Stop: 10/21/17 10:00 Last Admin: 10/21/17 10:14 Dose: 12.5 mg - Exam General: Alert, Oriented, Cooperative, No Acute Distress HEENT: Pupils Equal, Pupils Reactive, Mucous Membr. Moist/[place]. No: EOMI Neck: Supple, Trachea Midline, No JVD Lungs: Clear to Auscultation, Normal Respiratory Effort Cardiovascular: Irregular Rhythm GI/Abdominal Exam: Normal Bowel Sounds, Soft, Non-Tender, No Organomegaly, No Distention, No Abnormal Bruit, No Mass (Male) Exam: Deferred Back Exam: Normal Inspection, Decreased Range of Motion Extremities: Normal Inspection, Normal Range of Motion, Non-Tender, No Pedal Edema, Normal Capillary Refill Peripheral Pulses: 2+: Dorsalis Pedis (R) Skin: Warm, Dry, Intact Neurological: No New Focal Deficit Psy/Mental Status: Alert, Normal Affect, Normal Mood - Problem List Review Problem List Initiated/Reviewed/Updated: Yes - My Orders Last 24 Hours: My Active Orders 10/21/17 09:00 Apixaban [Eliquis] 5 mg PO BID 10/21/17 12:14 EKG 12 Lead [EK] Stat 10/21/17 19:15 Amiodarone In Dextrose,Iso-Osm [Nexterone in Dextrose 360 MG/200 ML] 360 mg in 200 ml IV ASDIRECTED 10/21/17 20:27 Oxymetazoline [Afrin Original 0.05% Nasal [place]] 0 ml VAHE BID PRN 10/21/17 21:00 Aspirin 81 mg PO BEDTIME 10/22/17 05:50 BASIC METABOLIC PANEL,BMP [CHEM] AM MAGNESIUM [CHEM] AM PRO B-TYPE NATRIUR PEPT,BNPPRO [CHEM] 0511 10/22/17 09:00 Lisinopril [Prinivil] 10 mg PO DAILY 10/23/17 09:00 Spironolactone [Aldactone] 12.5 mg PO MoWeFr@0900 - Plan Plan:: Acute: Atrial Flutter now Controlled Rate * 2:1 conduction * New Onset * Suspect 2/2 acute congestive heart failure * Risk Factors: HF, HTN, CKD and Medical Non-Compliance * He drinks coffee but not much and denies drinking energy drinks (Monster or 5 hour drinks) * TSH ordered and is 1.573 * He was on cardizem drip but then switch to BB and Digoxn after his 2D echo report came back; continue Amdiodarone and Metoprolol regimen * CHA2D2 -VASc Score is at least 3: Stroke risk was 3.2% per year in >90,000 patients (the [place] Atrial Fibrillation Cohort Study) and 4.6% risk of stroke/ TIA/systemic embolism * Continue 2.5 mg po BID with renal function Heart Failure with Reduced EF of 35% likely from Probable Ischemic Cardiomyopathty * New vs Old * ProBNP 7359 today, was 9267 in ED * Has clinical signs of volume overload with reported 15# weight gain in past 2- 3 weeks * Patient also reports orthopnea and PND * 2D echo ordered and read as EF 35%, akinesis of septal left ventricular wall, severely dilated left and right atrium, mod-severe MR, mod-severe TR, severely elevated right ventricular systolic pressure * Heart Failure Protocol: diuretics, Is/Os, salt and fluid restrictions --> received Lasix 40 mg IV push x1 in ED; will order Lasix 20 mg po daily with KCl 20 mEq po daily * Per ED notes, patient went to [facility] 2 days ago and was prescribed metoprolol 25 mg BID and apparently lisinopril/hydrochlorothiazide with dosage unknown * Metoprolol 50 mg po q 12 hr ordered during admission * Consider lisinopril alone at discharge * Lipid panel: Total 102, LDL 68, HDL 24--> continue statin * Continue core measure drugs: Laix, BB, ACEI, Spironolactone, Statin and ASA * Patient will require close PCP follow-up --> he is agreeable to seeing a provider in [place] but would like to make his own appointment Anxiety * He carries a chronic hx of untreated anxiety according to his sister * This also exacerbates his rapid heart rate but improves with benzo * He is currently on low dose Klonopin TID for maintenance and tolerating it well Resolved: S/p Hypokalemia * K 3.0 today, was 3.6 in ED--> 4.7 * Likely 2/2 volume status * Pharmacy to replete * Will order KCl 20 mEq po daily with Lasix order * Monitor S/p Slightly Elevated Troponin Level * Troponin 0.071 today, was 0.068 in ED; CKMB 3.7 today, was 7.2 in ED * Likely from CKD and Heart Strain from Atrial Flutter S/p Malignant HTN * Per ED notes, patient went to [facility] 2 days ago and was prescribed metoprolol 25 mg twice a day and apparently lisinopril/ hydrochlorothiazide with dosage unknown --> requested these records * Non-compliance * Documented BP of 154/129 and 165/100 mmHg --> improved today * Hydralazine prn BP >140/90 * Added HF core measure medications * Discharge antihypertensives in line with heart failure core measures S/p Hyperglycemia * Likely 2/2 stress * Glucose 160--> 91 today * Likely 2/2 current medical state; however, concern that patient may have underlying diabetes * Patient does report polyphagia * Hgb A1c is 5.7 Chronic: CKD Stage 3 * We have no previous records; this is chronic * BUN 73, Cr 2.4, eGFR 27 today; BUN 74, Cr 2.5, eGFR 26 in ED * Monitor renal function Plan: He remains clinically stable He still needs to come off drip, switch to oral dosing and monitor response off the drip for 24 hrs and make necessary adjustment if needed Continue current treatment Routine AM Labs Ambulate as tolerated SW/CM for d/c planning Additional orders as above Code status: 1 Yesterday I updated his sisters about his diagnoses, treatment plan, clinical progress as well as discharge care plan. LOS > 96hrs due to slow response to treatment
[2017-10-22] MEDS: Apixaban 5 MG Tab PO SCH ×2 (08:22→20:01)
[2017-10-22] MEDS: Lisinopril 10 MG Tab PO SCH (08:24)
[2017-10-22] MEDS: Potassium Chloride 20 MEQ Tab.ER PO SCH (08:24)
[2017-10-22] MEDS: Furosemide 20 MG Tab PO SCH (08:24)
[2017-10-22] MEDS: Metoprolol Tartrate 50 MG Tab PO SCH (08:24)
[2017-10-22] MEDS ORDERED: Metoprolol Tartrate 25 MG Tab PO ONE (08:43)
[2017-10-22] MEDS: LORazepam 2 MG/ML SDV IV PRN (08:47)
[2017-10-22] MEDS ORDERED: ClonazePAM 1 MG Tab PO SCH ×2 (09:45→14:00)
[2017-10-22] MEDS ORDERED: LORazepam 2 MG/ML SDV IV PRN (09:51)
[2017-10-22] MEDS ORDERED: Amiodarone 200 MG Tab PO ONE (12:00)
[2017-10-22] MEDS: ClonazePAM 0.5 MG Tab PO SCH ×2 (14:21→21:57)
[2017-10-22] MEDS: Metoprolol Tartrate 25 MG Tab PO SCH (20:00)
[2017-10-22] MEDS: Amiodarone 200 MG Tab PO SCH (20:01)
[2017-10-22] MEDS: Aspirin 81 MG Tab.Chew PO SCH (20:01)
[2017-10-22] MEDS: Calcium Carbonate 500 MG Tab.Chew PO PRN (20:02)
[2017-10-22] MEDS: Ondansetron 4 MG/2 ML SDV IV PRN (21:57)
--- NOTE | 2017-10-23 07:10 | PCM.DCSUM1 ---
<Michelle Mccollum - Last Filed: 10/23/17 12:42> Discharge Summary - Discharge Data Discharge Disposition: Home, Self-Care 01 Condition: Good - Patient Summary/Data Consults: Consultations 10/19/17 21:08 Consult to Case Management [CONS] Routine Consult to [employer] Planner [CONS] Routine Consult to Spiritual Care [CONS] Routine Hospital Course: Assessment/Plan Acute: Atrial Flutter now Controlled Rate * 2:1 conduction * New Onset * Suspect 2/2 acute congestive heart failure * Risk Factors: HF, HTN, CKD and Medical Non-Compliance * He drinks coffee but not much and denies drinking energy drinks (Monster or 5 hour drinks) * TSH ordered and is normal at 1.573 * He was on cardizem drip but then switch to BB and Digoxn after his 2D echo report came back; continue Amdiodarone and Metoprolol regimen * CHA2D2 -VASc Score is at least 3: Stroke risk was 3.2% per year in >90,000 patients (the [place] Atrial Fibrillation Cohort Study) and 4.6% risk of stroke/ TIA/systemic embolism * Patient has chosen Eliquis Heart Failure with Reduced EF of 35% likely from Probable Ischemic Cardiomyopathty * New vs Old * ProBNP 5163 today, down from 9267 in ED * Has clinical signs of volume overload with reported 15# weight gain in past 2- 3 weeks * Patient also reports orthopnea and PND * 2D echo ordered and read as EF 35%, akinesis of septal left ventricular wall, severely dilated left and right atrium, mod-severe MR, mod-severe TR, severely elevated right ventricular systolic pressure * Heart Failure Protocol: diuretics, Is/Os, salt and fluid restrictions --> received Lasix 40 mg IV push x1 in ED; will order Lasix 20 mg po daily with KCl 20 mEq po daily --> increased to 40 mg daily at discharge * Per ED notes, patient went to [place] walk-in clinic 2 days ago and was prescribed metoprolol 25 mg BID and apparently lisinopril/hydrochlorothiazide with dosage unknown * Metoprolol 50 mg po q 12 hr ordered during admission * Consider lisinopril alone at discharge * Lipid panel: Total 102, LDL 68, HDL 24--> continue statin * Continue core measure drugs: Lasix, BB, ACEI, Spironolactone, Statin and ASA * Patient will require close PCP follow-up --> he is agreeable to seeing a provider in [place] but would like to make his own appointment Anxiety * He carries a chronic hx of untreated anxiety according to his sister * This also exacerbates his rapid heart rate but improves with benzo * He is currently on low dose Klonopin TID for maintenance and tolerating it well Resolved: S/p Hypokalemia * K 3.0 today, was 3.6 in ED--> 4.7 * Likely 2/2 volume status * Pharmacy to replete * Will order KCl 20 mEq po daily with Lasix order * Monitor S/p Slightly Elevated Troponin Level * Troponin 0.051 today, down from Troponin 0.071 during admission and 0.068 in ED; CKMB 3.7 today, was 7.2 in ED * Likely from CKD and Heart Strain from Atrial Flutter S/p Malignant HTN * Per ED notes, patient went to [place] walk-in clinic 2 days ago and was prescribed metoprolol 25 mg twice a day and apparently lisinopril/HCTZ with dosage unknown --> requested these records * Non-compliance * Documented BP of 154/129 and 165/100 mmHg --> improved during admission * Hydralazine prn BP >140/90 * Added HF core measure medications with discharge antihypertensives in line with heart failure core measures S/p Hyperglycemia * Likely 2/2 stress * Glucose 160--> 91 today * Likely 2/2 current medical state; however, concern that patient may have underlying diabetes * Patient does report polyphagia * Hgb A1c is 5.7 Chronic: CKD Stage 3 * We have no previous records; this is chronic * BUN 73, Cr 2.4, eGFR 27 today; BUN 74, Cr 2.5, eGFR 26 in ED * Monitor Plan: He remains clinically stable Continue current treatment Routine AM Labs Ambulate as tolerated SW/CM for d/c planning --> stable and ready for D/C home today, 10/23/17 Additional orders as above Code status: 1 LOS > 96hrs due to slow response to treatment Hospital Course: Gm was admitted for new-onset atrial flutter and suspected heart failure. Patient improved during his stay. His initial work up in ED showed CBC remarkable for WBC 9.30, RDW 53.7, Neutrophils 79%, and Lymphocytes 17%. His Coagulation study was remarkable for PT 13.1. His chemistry was significant for CO2 20, anion gap 18.6, BUN 74, Cr 2.5, Mg 2.6, Total Bilirubin 1.7, AST 53, ALT 75. CKMB was 7.2, and Troponin was 0.068. ProBNP was elevated at 9267. His UA was negative for UTI. His CXR showed moderately enlarged heart w/o obvious congestion or effusions. Upon presentation to ED he was found to have HR of 133 with a WCT on EKG. After a closer look at EKG, it revealed he had atrial flutter with 2:1 conduction block. Patient received 40 mg IV lasix and Cardizem 10 mg IV in ED before he was put on cardizem drip and moved to unit. CHA2D2 - VASc Score was at least 3: Stroke risk was 3.2% per year in >90,000 patients ( the [place] Atrial Fibrillation Cohort Study) and 4.6% risk of stroke/TIA/ systemic embolism. Patient has chosen Eliquis and received Rx and savings card at discharge. With new onset atrial flutter, TSH was ordered and was normal at 1.573. 2D Echo was ordered and read as EF 35%, akinesis of septal left ventricular wall, severely dilated left and right atrium, mod-severe MR, mod- severe TR, severely elevated right ventricular systolic pressure. This is likely due to probable ischemic cardiomyopathy. Cardizem was discontinued. Heart failure protocol was initiated: diuretics, Is/Os, salt and fluid restrictions. Patient received Lasix 40 mg IV push x1 in ED; ordered Lasix 20 mg po daily with KCl 20 mEq po daily which was increased to Lasix 40 mg daily at discharge. Heart failure core measures were also followed: Metoprolol 50 mg po q 12 hr ordered during admission with increase to 75 mg q 12 hr; Lisinopril 10 mg po, spironolactone 12.5 mg po, statin, and ASA were also initiated during admission. Lipid panel during admission showed total chol 102, LDL 68, HDL 24. Lifestyle modifications including low sodium diet and fluid restriction encouraged. Patient's heart rate continued to be elevated and digoxin and amiodarone were given during admission with amiodarone to continue after discharge. Patient's blood pressure was initially quite elevated but improved during admission. Renal function remained diminished but stable at CKD stage 3. Labs during admission significant for elevated troponin level, hypokalemia, and hyperglycemia. Troponin level was elevated in ED with mild increase during admission but then declined. Hypokalemia resolved following supplementation. Hyperglycemia also resolved and Hgb A1c was 5.7. In addition to the above, it was discovered that patient carries a hx/o untreated anxiety per patient's sister which was felt to exacerbate his rapid heart rate. Low dose Klonopin TID initiated for maintenance, and patient tolerated this well. New/updated medications at discharge are: metoprolol tartrate 75 mg po q 12 hr, amiodarone 400 mg po BID, Eliquis 2.5 mg po BID, ASA 81 mg po daily, atorvastatin 20 mg po daily, Klonopin 0.5 mg po TID, Lasix 40 mg po 1 tab daily and 2 tabs for sudden shortness of breath or increased edema, lisinopril 10 mg po daily, spironolactone 12.5 mg po MWF. Recommend patient select 1 PCP and see this provider in 1 week. Also recommended that patient establish care with marketing sales manager. Patient agreeable to this plan. - Discharge Plan Prescriptions/Med Rec: Metoprolol Tartrate [Lopressor] 75 mg PO Q12HR #120 tablet Amiodarone [Cordarone] 400 mg PO BID #60 tablet Apixaban [Eliquis] 2.5 mg PO BID #60 tablet Aspirin 81 mg PO BEDTIME #30 tab.chew atorvaSTATin Calcium [Atorvastatin Calcium] 20 mg PO DAILY #30 tablet ClonazePAM [KlonoPIN] 0.5 mg PO TID@0700,1400,2100 #90 tablet Furosemide [Lasix] 40 mg PO ASDIRECTED #60 tablet Lisinopril [Prinivil] 10 mg PO DAILY #30 tablet Spironolactone [Aldactone] 12.5 mg PO MoWeFr@0900 #60 Home Medications: Home Meds Amiodarone [Cordarone] 400 mg PO BID #60 tablet 10/23/17 [Rx] Apixaban [Eliquis] 2.5 mg PO BID #60 tablet 10/23/17 [Rx] Aspirin 81 mg PO BEDTIME #30 tab.chew 10/23/17 [Rx] ClonazePAM [KlonoPIN] 0.5 mg PO TID@0700,1400,2100 #90 tablet 10/23/17 [Rx] Furosemide [Lasix] 40 mg PO ASDIRECTED #60 tablet 10/23/17 [Rx] Lisinopril [Prinivil] 10 mg PO DAILY #30 tablet 10/23/17 [Rx] Metoprolol Tartrate [Lopressor] 75 mg PO Q12HR #120 tablet 10/23/17 [Rx] Spironolactone [Aldactone] 12.5 mg PO MoWeFr@0900 #60 10/23/17 [Rx] atorvaSTATin Calcium [Atorvastatin Calcium] 20 mg PO DAILY #30 tablet 10/23/17 [ Rx] Patient Handouts: Generalized Anxiety Disorder, Adult, Cardiomyopathy, Adult, Atrial Flutter, Hypertension, [id number], Chronic Kidney Disease, Adult, Easy- to-Read, Heart Failure, [id number], Fat and Cholesterol Restricted Diet, Easy- to-Read Referrals: PCP,None [Primary Care Provider] - - Patient Data Vitals - Most Recent: Last Vital Signs Temp 97.8 F 10/23/17 08:00 Pulse 105 H 10/23/17 08:23 Resp 18 10/23/17 08:00 BP 137/77 10/23/17 08:23 Pulse Ox 100 10/23/17 08:00 I&O - Last 24 hours: Intake & Output 10/22/17 10/23/17 10/23/17 22:59 06:59 14:59 Intake Total 975 400 120 Balance 975 400 120 Med Orders - Current: Current Medications Acetaminophen (Tylenol) 650 mg PO Q4H PRN PRN Reason: Pain (Mild 1-3)/fever Hydrocodone Bitart/Acetaminophen ([place] 325-5 Mg) 1 tab PO Q4H PRN PRN Reason: Pain (moderate 4-6) Albuterol/Ipratropium (Duoneb 3.0-0.5 Mg/3 Ml) 3 ml NEB Q4H PRN PRN Reason: Shortness Of Breath/wheezing Amiodarone HCl (Cordarone) 400 mg PO BID [facility] Last Admin: 10/23/17 08:21 Dose: 400 mg Apixaban (Eliquis) 5 mg PO BID [facility] Last Admin: 10/23/17 08:19 Dose: 5 mg Aspirin (Aspirin) 81 mg PO BEDTIME [facility] Last Admin: 07/15/18 20:01 Dose: 81 mg Bisacodyl (Dulcolax) 5 mg PO DAILY PRN PRN Reason: Constipation Calcium Carbonate/Glycine (Tums) 1,000 mg PO Q2HR PRN PRN Reason: Indigestion Last Admin: 10/22/17 20:02 Dose: 1,000 mg Clonazepam (Klonopin) 0.5 mg PO TID@0700,1400,2100 [facility] Last Admin: 10/23/17 07:34 Dose: 0.5 mg Docusate Sodium (Colace) 100 mg PO BID PRN PRN Reason: Constipation Furosemide (Lasix) 40 mg PO DAILY [facility] Last Admin: 10/23/17 08:19 Dose: 40 mg Hydralazine HCl (Apresoline) 20 mg IVPUSH Q4H PRN PRN Reason: Hypertension Last Admin: 10/21/17 17:07 Dose: 20 mg Hydromorphone HCl (Dilaudid) 0.5 mg IVPUSH Q2H PRN PRN Reason: Pain (severe 7-10) Promethazine HCl 12.5 mg/ (Sodium Chloride) 50.5 mls @ 100 mls/hr IV Q6H PRN PRN Reason: Nausea/Vomiting Lisinopril (Prinivil) 10 mg PO DAILY [facility] Last Admin: 10/23/17 08:20 Dose: 10 mg Lorazepam (Ativan) 2 mg IVPUSH Q4H PRN PRN Reason: Seizures Lorazepam (Ativan) 0.5 mg IV Q6H PRN PRN Reason: Anxiety Last Admin: 10/22/17 21:57 Dose: 0.5 mg Magnesium Sulfate (Pharmacy To Dose - Magnesium Replacement) 0 dose .XX ASDIRECTED PRN PRN Reason: RX TO WATCH MAG LEVELS Metoprolol Tartrate (Lopressor) 5 mg IVPUSH Q4H PRN PRN Reason: Tachycardia Last Admin: 10/21/17 18:48 Dose: 5 mg Metoprolol Tartrate (Lopressor) 75 mg PO Q12HR [facility] Last Admin: 10/23/17 08:23 Dose: 75 mg Ondansetron HCl (Zofran) 4 mg IV Q6H PRN PRN Reason: Nausea/Vomiting Last Admin: 10/22/17 21:57 Dose: 4 mg Oxymetazoline HCl (Afrin Original 0.05% Nasal [place]) 0 ml VAHE BID PRN PRN Reason: Congestion Last Admin: 10/21/17 21:27 Dose: 1 spray Polyethylene Glycol (Miralax) 17 gm PO DAILY PRN PRN Reason: Constipation Potassium Chloride (Pharmacy To Dose - Potassium Replacement) 0 dose .XX ASDIRECTED PRN PRN Reason: RX TO WATCH K LEVELS Potassium Chloride (Klor-Con M20) 20 meq PO DAILY [facility] Last Admin: 10/23/17 08:22 Dose: 20 meq Senna/Docusate Sodium (Senna Plus) 1 tab PO BID PRN PRN Reason: Constipation Sodium Chloride (Saline Flush) 10 ml FLUSH ASDIRECTED PRN PRN Reason: Keep Vein Open Last Admin: 10/19/17 17:33 Dose: 10 ml Spironolactone (Aldactone) 12.5 mg PO MoWeFr@0900 [facility] Last Admin: 10/23/17 08:24 Dose: 12.5 mg Temazepam (Restoril) 15 mg PO BEDTIME PRN PRN Reason: Sleep Last Admin: 10/21/17 21:28 Dose: 15 mg Discontinued Medications Amiodarone HCl (Cordarone) 800 mg PO ONETIME ONE Stop: 10/22/17 12:01 Last Admin: 10/22/17 12:04 Dose: 800 mg Apixaban (Eliquis) 5 mg PO ONETIME ONE Stop: 10/19/17 21:07 Last Admin: 10/19/17 22:04 Dose: 5 mg Apixaban (Eliquis) 2.5 mg PO BID [facility] Last Admin: 10/20/17 21:38 Dose: 2.5 mg Clonazepam (Klonopin) 1 mg PO TID@0700,1400,2100 [facility] Last Admin: 10/22/17 10:00 Dose: Not Given Clonazepam (Klonopin) 1 mg PO TID@0700,1400,2100 [facility] Digoxin (Lanoxin) 125 mcg IVPUSH Q6H [facility] Stop: 10/21/17 08:16 Last Admin: 10/21/17 08:47 Dose: 125 mcg Diltiazem HCl (Diltiazem) 10 mg IVPUSH ONETIME ONE Stop: 10/19/17 17:09 Last Admin: 10/19/17 17:28 Dose: 10 mg Diltiazem HCl (Diltiazem) 10 mg IVPUSH ONETIME ONE Stop: 10/19/17 18:26 Last Admin: 10/19/17 18:31 Dose: 10 mg Diltiazem HCl (Cardizem Cd) 180 mg PO DAILY [facility] Last Admin: 10/20/17 08:24 Dose: 180 mg Diltiazem HCl (Dilacor Xr) 240 mg PO DAILY [facility] Furosemide (Lasix) 40 mg IVPUSH NOW ONE Stop: 10/19/17 16:59 Last Admin: 10/19/17 17:27 Dose: 40 mg Furosemide (Lasix) 20 mg PO DAILY [facility] Last Admin: 10/22/17 08:24 Dose: 20 mg Hydralazine HCl (Apresoline) 10 mg IVPUSH ONETIME ONE Stop: 10/19/17 18:35 Last Admin: 10/19/17 18:55 Dose: 10 mg Diltiazem HCl 125 mg/ Sodium (Chloride) 125 mls @ 10 mls/hr IV ASDIRECTED [facility] Last Admin: 10/19/17 18:57 Dose: 10 mg/hr, 10 mls/hr Diltiazem HCl 125 mg/ Sodium (Chloride) 125 mls @ 5 mls/hr IV TITRATE [facility]; Protocol Last Titration: 10/20/17 09:45 Dose: 0 mg/hr, 0 mls/hr Amiodarone HCl/Dextrose (Nexterone In Dextrose 360 Mg/200 Ml) 360 mg in 200 mls @ 33.333 mls/hr IV ASDIRECTED [facility]; Protocol Last Admin: 10/21/17 12:53 Dose: 33.333 mls/hr Amiodarone HCl/Dextrose (Nexterone In Dextrose 150 Mg/100 Ml) 100 mls @ 600 mls /hr IV .BOLUS ONE; Protocol Stop: 10/21/17 12:25 Last Admin: 10/21/17 12:32 Dose: 600 mls/hr Amiodarone HCl/Dextrose (Nexterone In Dextrose 360 Mg/200 Ml) 360 mg in 200 mls @ 16.7 mls/hr IV ASDIRECTED [facility]; Protocol Stop: 10/22/17 19:16 Last Admin: 10/21/17 19:03 Dose: 16.7 mls/hr Lisinopril (Prinivil) 10 mg PO ONETIME ONE Stop: 10/21/17 10:03 Last Admin: 10/21/17 10:15 Dose: 10 mg Lorazepam (Ativan) 1 mg IV Q6H PRN PRN Reason: Anxiety Last Admin: 10/22/17 08:47 Dose: 1 mg Metoprolol Tartrate (Lopressor) 50 mg PO Q12HR [facility] Last Admin: 10/22/17 08:24 Dose: 50 mg Metoprolol Tartrate (Lopressor) 50 mg PO ONETIME ONE Stop: 10/19/17 21:05 Last Admin: 10/19/17 22:04 Dose: 50 mg Metoprolol Tartrate (Lopressor) 25 mg PO ONETIME ONE Stop: 10/22/17 08:44 Last Admin: 10/22/17 09:41 Dose: 25 mg Potassium Chloride (Klor-Con M20) 40 meq PO Q4H [facility] Stop: 10/20/17 12:01 Last Admin: 10/20/17 12:45 Dose: 40 meq Spironolactone (Aldactone) 12.5 mg PO ONETIME ONE Stop: 10/21/17 10:00 Last Admin: 10/21/17 10:14 Dose: 12.5 mg <Adriana Dumont T - Last Filed: 10/23/17 15:38> Discharge Summary - Hospital Course Brief History: This is a 66 yo white male with past medical hx/o HTN who comes in with complaints of increased weight gain of about 15lbs or more over the past 3 weeks associated with dyspnea on exertion, fatigue, generalized weakness and swelling on bilateral lower extremity as well as on scrotum. He has been sleeping in am EZ chair due to PND and Orthopnea. He reports no hx/o heart disease or heart failure in the past. However he carries a hx/o long standing hypertension but has been non-compliant per family. In the past, he hops from one doctor to another but currently he just started seeing a provider. He is just got back on combo ACEI/HCTZ and Metoprolol 35 mg po BID for medical management of his HTN. His initial work up in ED shows, a CBC remarkable for WBC of 9.30, RDW of 53.7, Neutrophils of 79%, and Lymphocytes of 17%. His Coagulation study is remarkable for PT of 13.1. His chemistry is significant for CO2 of 20, AG of 18.6, BUN of 74, Cr of 2.5, Mg of 2.6, Total Bilirubin of 1.7, AST of 53, ALT of 75, CKMB of 7.2, Troponin of 2.9, and ProBNP of 9267. His UA is negative for UTI. His CXR shows moderately enlarged heart w/o obvious congestion or effusions. Upon presentation to ED he was found with at HR of 133 with a WCT on EKG. But a closer look of it, it revealed he had atrial flutter with 2:1 conduction block. Patient received 40 mg IV lasix and Cardizem 10 mg IV in ED before he was put on cardizem drip and moved to unit. Patient is being admitted for medical management of atrial flutter with RVR, heart failure with unknown ef, acute vs ckd and malignant hypertension. He is full code. Diagnosis: Stroke: No Modified Imelda Scale: No Symptoms at All Modified [place] Scale Score: 0 - Discharge Data Discharge Date: 10/23/17 - Discharge Diagnosis/Problem(s) (1) Atrial flutter with rapid ventricular response SNOMED Code(s): 4580609 ICD Code: I48.92 - UNSPECIFIED ATRIAL FLUTTER Status: Resolved (2) Dyslipidemia SNOMED Code(s): 531383714 ICD Code: E78.5 - HYPERLIPIDEMIA, UNSPECIFIED Status: Acute (3) Chronic renal insufficiency, stage IV (severe) SNOMED Code(s): 70366961 ICD Code: N18.4 - CHRONIC KIDNEY DISEASE, STAGE 4 (SEVERE) Status: Chronic (4) Congestive heart failure SNOMED Code(s): 38233167 ICD Code: I50.9 - HEART FAILURE, UNSPECIFIED Status: Acute Qualifiers: Heart failure type: systolic Heart failure chronicity: acute Qualified Code(s): I50.21 - Acute systolic (congestive) heart failure (5) Malignant hypertension SNOMED Code(s): 46067454 ICD Code: I10 - ESSENTIAL (PRIMARY) HYPERTENSION Status: Chronic (6) Cardiomyopathy SNOMED Code(s): 83640887 ICD Code: I42.9 - CARDIOMYOPATHY, UNSPECIFIED Status: Acute Qualifiers: Cardiomyopathy type: unspecified Qualified Code(s): I42.9 - Cardiomyopathy , unspecified (7) Hyperglycemia, unspecified SNOMED Code(s): 00774920 ICD Code: R73.9 - HYPERGLYCEMIA, UNSPECIFIED Status: Resolved (8) Hypokalemia SNOMED Code(s): 31132984 ICD Code: E87.6 - HYPOKALEMIA Status: Resolved (9) Elevated troponin I measurement SNOMED Code(s): 495720304 ICD Code: R74.8 - ABNORMAL LEVELS OF OTHER SERUM ENZYMES Status: Resolved (10) Anxiety SNOMED Code(s): 20971941 ICD Code: F41.9 - ANXIETY DISORDER, UNSPECIFIED Status: Chronic - Patient Summary/Data Operative Procedure(s) Performed: None Complications: None Consults: Consultations 10/19/17 21:08 Consult to Case Management [CONS] Routine Consult to [employer] Planner [CONS] Routine Consult to Spiritual Care [CONS] Routine Labs Pending at D/C: None Recommended Follow-up Testing/Procedures: None Planned Operative Procedure(s) after DC: None Hospital Course: The patient was seen and examined at bedside in concert with the PA student. The discharge assessment and plans were discussed and agreed upon with me. - Patient Instructions Diet: Heart Healthy Diet, Usual Diet as Tolerated, Low Sodium, Fluid Restriction Fluid Restriction: 2.5L Activity: As Tolerated Driving: May Drive Today Showering/Bathing: May Shower Notify Provider of: Fever, Increased Pain, Swelling and Redness, Nausea and/or Vomiting Other/Special Instructions: - Please take all new medications as directed. - Resume all routine home activities as tolerated. - Recommend Cardiology follow after discharge. - Make sure you stay with only ONE primary care doctor. - Medical and dietary compliance is imperative to maintaining stable health. - Follow daily weight check, fluid and salt restrictions. - Check your vitals before you take blood pressure pills and follow instructions. - Call or follow up with your new PCP for any questions or concerns after discharge. - Follow up with your new PCP in 1 week with. - Come back or seek immediate care should your symptoms persist or get worse - Discharge Plan *PRESCRIPTION DRUG MONITORING PROGRAM REVIEWED*: No *COPY OF PRESCRIPTION DRUG MONITORING REPORT IN PATIENT SHANTELL: No - Discharge Summary/Plan Comment DC Time >30 min.: Yes (45 mins) Discharge Summary/Plan Comment: Discharge to Home - General Info Date of Service: 10/23/17 Admission Dx/Problem (Free Text: Admission Diagnosis/Problem Admission Diagnosis/Problem Atrial fibrillation Subjective Update: Follow up Functional Status: Reports: Pain Controlled, Tolerating Diet, Ambulating, Urinating - Review of Systems General: Denies: Fever, Weakness, Fatigue, Malaise, Chills HEENT: Reports: No Symptoms Pulmonary: Denies: Shortness of Breath Cardiovascular: Denies: Chest Pain, Dyspnea on Exertion, Lightheadedness Gastrointestinal: Denies: Abdominal Pain, Nausea, Vomiting Genitourinary: Reports: No Symptoms Musculoskeletal: Reports: No Symptoms Skin: Denies: Cyanosis, Mottled, Pallor, Diaphoresis, Bruising Neurological: Denies: Confusion, Difficulty Walking, Weakness, Gait Disturbance Psychiatric: Denies: Depression, Anxiety, Agitation, Hallucinations Systems Review Comment: No overnight or acute issues. He slept good and feels pretty good this AM. He reports no complaints. His HR is well controlled. - Patient Data Vitals - Most Recent: Last Vital Signs Temp 36.1 C 10/23/17 04:00 Pulse 113 H 10/22/17 20:00 Resp 20 10/23/17 04:00 BP 121/88 10/23/17 04:00 Pulse Ox 98 10/23/17 04:00 Weight - Most Recent: 99.836 kg I&O - Last 24 hours: Intake & Output 10/22/17 10/23/17 10/23/17 22:59 06:59 14:59 Intake Total 975 400 Balance 975 400 Lab Results - Last 24 hrs: Laboratory Results - last 24 hr 10/22/17 10/22/17 Range/Units 05:50 05:50 Sodium 141 (136-145) mEq/L Potassium 4.6 (3.5-5.1) mEq/L Chloride 107 (98-107) mEq/L Carbon Dioxide 25 (21-32) mEq/L Anion Gap 13.6 (5-15) BUN 77 H (7-18) mg/dL Creatinine 2.4 H (0.7-1.3) mg/dL Est Cr Clr Drug Dosing 30.84 mL/min Estimated GFR (MDRD) 27 (>60) mL/min BUN/Creatinine Ratio 32.1 H (14-18) Glucose 88 (80-115) mg/dL Calcium 8.5 (8.5-10.1) mg/dL Magnesium 2.7 H (1.8-2.4) mg/dl NT-Pro-B Natriuret Pep 5163 H (0-125) pg/mL Med Orders - Current: Current Medications Acetaminophen (Tylenol) 650 mg PO Q4H PRN PRN Reason: Pain (Mild 1-3)/fever Hydrocodone Bitart/Acetaminophen ([place] 325-5 Mg) 1 tab PO Q4H PRN PRN Reason: Pain (moderate 4-6) Albuterol/Ipratropium (Duoneb 3.0-0.5 Mg/3 Ml) 3 ml NEB Q4H PRN PRN Reason: Shortness Of Breath/wheezing Amiodarone HCl (Cordarone) 400 mg PO BID [facility] Last Admin: 10/22/17 20:01 Dose: 400 mg Apixaban (Eliquis) 5 mg PO BID [facility] Last Admin: 10/22/17 20:01 Dose: 5 mg Aspirin (Aspirin) 81 mg PO BEDTIME [facility] Last Admin: 10/22/17 20:01 Dose: 81 mg Bisacodyl (Dulcolax) 5 mg PO DAILY PRN PRN Reason: Constipation Calcium Carbonate/Glycine (Tums) 1,000 mg PO Q2HR PRN PRN Reason: Indigestion Last Admin: 10/22/17 20:02 Dose: 1,000 mg Clonazepam (Klonopin) 0.5 mg PO TID@0700,1400,2100 [facility] Last Admin: 10/22/17 21:57 Dose: 0.5 mg Docusate Sodium (Colace) 100 mg PO BID PRN PRN Reason: Constipation Furosemide (Lasix) 40 mg PO DAILY [facility] Hydralazine HCl (Apresoline) 20 mg IVPUSH Q4H PRN PRN Reason: Hypertension Last Admin: 10/21/17 17:07 Dose: 20 mg Hydromorphone HCl (Dilaudid) 0.5 mg IVPUSH Q2H PRN PRN Reason: Pain (severe 7-10) Promethazine HCl 12.5 mg/ (Sodium Chloride) 50.5 mls @ 100 mls/hr IV Q6H PRN PRN Reason: Nausea/Vomiting Lisinopril (Prinivil) 10 mg PO DAILY [facility] Last Admin: 10/22/17 08:24 Dose: 10 mg Lorazepam (Ativan) 2 mg IVPUSH Q4H PRN PRN Reason: Seizures Lorazepam (Ativan) 0.5 mg IV Q6H PRN PRN Reason: Anxiety Last Admin: 10/22/17 21:57 Dose: 0.5 mg Magnesium Sulfate (Pharmacy To Dose - Magnesium Replacement) 0 dose .XX ASDIRECTED PRN PRN Reason: RX TO WATCH MAG LEVELS Metoprolol Tartrate (Lopressor) 5 mg IVPUSH Q4H PRN PRN Reason: Tachycardia Last Admin: 10/21/17 18:48 Dose: 5 mg Metoprolol Tartrate (Lopressor) 75 mg PO Q12HR [facility] Last Admin: 10/22/17 20:00 Dose: 75 mg Ondansetron HCl (Zofran) 4 mg IV Q6H PRN PRN Reason: Nausea/Vomiting Last Admin: 10/22/17 21:57 Dose: 4 mg Oxymetazoline HCl (Afrin Original 0.05% Nasal [place]) 0 ml VAHE BID PRN PRN Reason: Congestion Last Admin: 10/21/17 21:27 Dose: 1 spray Polyethylene Glycol (Miralax) 17 gm PO DAILY PRN PRN Reason: Constipation Potassium Chloride (Pharmacy To Dose - Potassium Replacement) 0 dose .XX ASDIRECTED PRN PRN Reason: RX TO WATCH K LEVELS Potassium Chloride (Klor-Con M20) 20 meq PO DAILY [facility] Last Admin: 10/22/17 08:24 Dose: 20 meq Senna/Docusate Sodium (Senna Plus) 1 tab PO BID PRN PRN Reason: Constipation Sodium Chloride (Saline Flush) 10 ml FLUSH ASDIRECTED PRN PRN Reason: Keep Vein Open Last Admin: 10/19/17 17:33 Dose: 10 ml Spironolactone (Aldactone) 12.5 mg PO MoWeFr@0900 [facility] Temazepam (Restoril) 15 mg PO BEDTIME PRN PRN Reason: Sleep Last Admin: 10/21/17 21:28 Dose: 15 mg Discontinued Medications Amiodarone HCl (Cordarone) 800 mg PO ONETIME ONE Stop: 10/22/17 12:01 Last Admin: 10/22/17 12:04 Dose: 800 mg Apixaban (Eliquis) 5 mg PO ONETIME ONE Stop: 10/19/17 21:07 Last Admin: 10/19/17 22:04 Dose: 5 mg Apixaban (Eliquis) 2.5 mg PO BID [facility] Last Admin: 10/20/17 21:38 Dose: 2.5 mg Clonazepam (Klonopin) 1 mg PO TID@0700,1400,2100 [facility] Last Admin: 10/22/17 10:00 Dose: Not Given Clonazepam (Klonopin) 1 mg PO TID@0700,1400,2100 [facility] Digoxin (Lanoxin) 125 mcg IVPUSH Q6H [facility] Stop: 10/21/17 08:16 Last Admin: 10/21/17 08:47 Dose: 125 mcg Diltiazem HCl (Diltiazem) 10 mg IVPUSH ONETIME ONE Stop: 10/19/17 17:09 Last Admin: 10/19/17 17:28 Dose: 10 mg Diltiazem HCl (Diltiazem) 10 mg IVPUSH ONETIME ONE Stop: 10/19/17 18:26 Last Admin: 10/19/17 18:31 Dose: 10 mg Diltiazem HCl (Cardizem Cd) 180 mg PO DAILY [facility] Last Admin: 10/20/17 08:24 Dose: 180 mg Diltiazem HCl (Dilacor Xr) 240 mg PO DAILY [facility] Furosemide (Lasix) 40 mg IVPUSH NOW ONE Stop: 10/19/17 16:59 Last Admin: 10/19/17 17:27 Dose: 40 mg Furosemide (Lasix) 20 mg PO DAILY [facility] Last Admin: 10/22/17 08:24 Dose: 20 mg Hydralazine HCl (Apresoline) 10 mg IVPUSH ONETIME ONE Stop: 10/19/17 18:35 Last Admin: 10/19/17 18:55 Dose: 10 mg Diltiazem HCl 125 mg/ Sodium (Chloride) 125 mls @ 10 mls/hr IV ASDIRECTED [facility] Last Admin: 10/19/17 18:57 Dose: 10 mg/hr, 10 mls/hr Diltiazem HCl 125 mg/ Sodium (Chloride) 125 mls @ 5 mls/hr IV TITRATE [facility]; Protocol Last Titration: 10/20/17 09:45 Dose: 0 mg/hr, 0 mls/hr Amiodarone HCl/Dextrose (Nexterone In Dextrose 360 Mg/200 Ml) 360 mg in 200 mls @ 33.333 mls/hr IV ASDIRECTED [facility]; Protocol Last Admin: 10/21/17 12:53 Dose: 33.333 mls/hr Amiodarone HCl/Dextrose (Nexterone In Dextrose 150 Mg/100 Ml) 100 mls @ 600 mls /hr IV .BOLUS ONE; Protocol Stop: 10/21/17 12:25 Last Admin: 10/21/17 12:32 Dose: 600 mls/hr Amiodarone HCl/Dextrose (Nexterone In Dextrose 360 Mg/200 Ml) 360 mg in 200 mls @ 16.7 mls/hr IV ASDIRECTED [facility]; Protocol Stop: 10/22/17 19:16 Last Admin: 10/21/17 19:03 Dose: 16.7 mls/hr Lisinopril (Prinivil) 10 mg PO ONETIME ONE Stop: 10/21/17 10:03 Last Admin: 10/21/17 10:15 Dose: 10 mg Lorazepam (Ativan) 1 mg IV Q6H PRN PRN Reason: Anxiety Last Admin: 10/22/17 08:47 Dose: 1 mg Metoprolol Tartrate (Lopressor) 50 mg PO Q12HR [facility] Last Admin: 10/22/17 08:24 Dose: 50 mg Metoprolol Tartrate (Lopressor) 50 mg PO ONETIME ONE Stop: 10/19/17 21:05 Last Admin: 10/19/17 22:04 Dose: 50 mg Metoprolol Tartrate (Lopressor) 25 mg PO ONETIME ONE Stop: 10/22/17 08:44 Last Admin: 10/22/17 09:41 Dose: 25 mg Potassium Chloride (Klor-Con M20) 40 meq PO Q4H [facility] Stop: 10/20/17 12:01 Last Admin: 10/20/17 12:45 Dose: 40 meq Spironolactone (Aldactone) 12.5 mg PO ONETIME ONE Stop: 10/21/17 10:00 Last Admin: 10/21/17 10:14 Dose: 12.5 mg - Exam General: Reports: Alert, Oriented, Cooperative, No Acute Distress HEENT: Reports: Pupils Equal, Pupils Reactive, EOMI, Mucous Membr. Moist/[place] Neck: Reports: Supple, Trachea Midline, No JVD Lungs: Reports: Clear to Auscultation, Normal Respiratory Effort Cardiovascular: Reports: Irregular Rhythm GI/Abdominal Exam: Normal Bowel Sounds, Soft, Non-Tender, No Organomegaly, No Distention, No Abnormal Bruit, No Mass (Male) Exam: Deferred Rectal (Males) Exam: Deferred Back Exam: Reports: Normal Inspection, Decreased Range of Motion Extremities: Normal Inspection, Normal Range of Motion, Non-Tender, No Pedal Edema, Normal Capillary Refill Skin: Reports: Warm, Dry, Intact Neurological: Reports: No New Focal Deficit Psy/Mental Status: Reports: Alert, Normal Affect, Normal Mood
[2017-10-23] MEDS: ClonazePAM 0.5 MG Tab PO SCH (07:34)
[2017-10-23] MEDS: Apixaban 5 MG Tab PO SCH (08:19)
[2017-10-23] MEDS: Lisinopril 10 MG Tab PO SCH (08:20)
[2017-10-23] MEDS: Amiodarone 200 MG Tab PO SCH (08:21)
[2017-10-23] MEDS: Potassium Chloride 20 MEQ Tab.ER PO SCH (08:22)
[2017-10-23] MEDS: Metoprolol Tartrate 25 MG Tab PO SCH (08:23)
[2017-10-23] MEDS ORDERED: Spironolactone 25 MG Tab PO SCH (09:00)
[2017-10-23] MEDS ORDERED: Furosemide 40 MG Tab PO SCH (09:00)
== END 2017-10-23 10:55 | disposition home or self-care (01) | DRG 291 ==
LOC: JD.ED 14:32 → JD.ICU 19:32
PROVIDERS: ADMIT Internal Medicine; ATTEND Internal Medicine
DX: I13.0 Hypertensive heart and chronic kidney disease with heart failure and stage 1 through stage 4 chronic kidney disease, or unspecified chronic kidney disease (principal); I50.23 Acute on chronic systolic (congestive) heart failure; I48.92 Unspecified atrial flutter; I25.5 Ischemic cardiomyopathy; F41.9 Anxiety disorder, unspecified; E87.6 Hypokalemia; R74.8 Abnormal levels of other serum enzymes; E11.65 Type 2 diabetes mellitus with hyperglycemia; N18.3 Chronic kidney disease, stage 3 (moderate); E11.22 Type 2 diabetes mellitus with diabetic chronic kidney disease; E78.5 Hyperlipidemia, unspecified; E78.00 Pure hypercholesterolemia, unspecified; J45.909 Unspecified asthma, uncomplicated; M15.9 Polyosteoarthritis, unspecified; I48.91 Unspecified atrial fibrillation; Z85.820 Personal history of malignant melanoma of skin; Z91.14 Patient's other noncompliance with medication regimen; Z79.899 Other long term (current) drug therapy; Z91.048 Other nonmedicinal substance allergy status; Z79.82 Long term (current) use of aspirin
CPT/HCPCS: 36415; 71045; 71045-26; 80048; 80053; 80061; 80162; 81001; 82553; 83036; 83735; 83880; 84439; 84443; 84484; 85007; 85025; 85027; 85610; 86140; 93005; 93010; 93306; 96374; 96375; 96376; 99285-25; A9270-GY; J0282; J0360; J1160; J1940; J2060; J2405; J3490; J7030; J7050